=== PATIENT | female | born 1990 | race Caucasian/White ===

== ENCOUNTER → 2016-12-28 | Outpatient (CLI) | payer OTHER ==
[~2016-12-28] MED LIST: CIPROFLAXIN PO; NO HISTORICAL MEDS; toradol PO
--- NOTE | 2016-12-29 03:39 | REP ---
Clinical: Anatomical evaluation. Comparison: None . Findings: Examination demonstrates a single live intrauterine in breech presentation. motion is identified by technologist. Placenta is noted anteriorly and grade zero without evidence for placenta previa or abruption (placental tip is 2.8 cm from the closed internal os). Amniotic fluid volume is normal. Cervix measures 6.5 cm in length and appears closed. No evidence for nuchal cord. Gestational age by current measurements 20 weeks 5 days with SHAHRAM 05/12/2017 . FHR equals 139 beats per minute. BPD 4.9 cm 20 weeks 6 days HC 18.4 cm 20 weeks 5 days AC 15.4 cm 20 weeks 4 days FL 3.6 cm 21 weeks 3 days HL 3.6 cm 22 weeks 2 days HC/AC ratio 1.19 Estimated weight 389 grams ( 54th percentile). Anatomical assessment demonstrates normal structures including cranium, choroid plexus, cavum, cerebellum/posterior fossa, facial features, lungs, four-chamber heart/ventricular outflow tracts, diaphragm, stomach, cord insertion/three-vessel cord, bladder, spine, and extremities. Mild bilateral hydronephrosis with the renal pelvises measuring approximately 4 mm diameter. Impression: Single live intrauterine in breech presentation. Mild bilateral renal hydronephrosis may warrant followup. Remainder of the anatomical assessment is complete and normal. Signed by Dawit Roque MD 12/29/2016 03:30 A
== END | disposition home or self-care (01) ==
LOC: M SMT 10:51
PROVIDERS: ATTEND Specialist
DX: Z36 Encounter for antenatal screening of mother (principal); Z3A.20 20 weeks gestation of pregnancy; O32.1XX0 Maternal care for breech presentation, not applicable or unspecified; O36.8920 Maternal care for other specified fetal problems, second trimester, not applicable or unspecified

== ENCOUNTER → 2017-02-16 | Outpatient (CLI) | payer OTHER ==
[2017-02-16 13:21] LABS: BASO # 0.1 K/mm3 (0.0-0.2); BASO % 0.5 % (0.0-1.0); EOS # 0.3 K/mm3 (0.0-0.50); EOS % 2.3 % (0.0-3.0); LARGE UNSTAINED CELL # 0.1 K/mm3 (0.0-0.4); LYMPH # 2.2 K/mm3 (1.5-6.5); LYMPH % 15.8 % (24.0-44.0); MEAN CORPUSCULAR HEMOGLOBIN 31.2 pg (27.0-33.0); MEAN CORPUSCULAR VOLUME 94.7 fl (80.0-96.0); MONO # 0.5 K/mm3 (0.0-0.8); MONO % 3.8 % (0.0-5.0); NEUTROPHILS # 9.8 K/mm3 (1.8-7.7); NEUTROPHILS % 76.5 % (36.0-66.0); PLATELET COUNT, AUTOMATED 359 k/mm3 (150-450); RED CELL DISTRIBUTION WIDTH 13.2 % (11.5-14.5); WHITE BLOOD COUNT 12.8 K/mm3 (4.0-10.0)
== END ==
LOC: M SMT 09:17
PROVIDERS: ATTEND Advanced Practice Midwife
DX: Z34.83 Encounter for supervision of other normal pregnancy, third trimester (principal); Z36 Encounter for antenatal screening of mother; Z3A.00 Weeks of gestation of pregnancy not specified

== ENCOUNTER → 2017-03-16 | Outpatient (CLI) | payer OTHER ==
--- NOTE | 2017-03-16 15:16 | REP ---
Obstetric sonography: History: Supervision of , size/date discrepancy. Size greater than dates. Findings: Scanning through the gravid uterus demonstrates a viable single intrauterine gestation in a cephalic lie. heart rate is recorded at 136 beats per minute. A posterior placenta is seen without evidence of previa. Amniotic fluid is subjectively normal. SIMI is normal at 17.8 cm. S/D ratio in the umbilical cord artery by Doppler is normal 2.70. cranium, face and profile, diaphragm, left-sided stomach, three-vessel cord, kidneys and bladder are seen today are felt to be unremarkable. Biometry chart: BPD 8.7 cm = 35 weeks 1 day HC 30.3 cm = 33 weeks 5 days AC 28.9 cm = 32 weeks 6 days FL 6.6 cm = 33 weeks 5 days HC/AC ratio normal 1.05. Cephalic index normal 0.8. Estimated weight 2194 grams, 4 pounds 13 ounces, 76th percentile for 31 weeks 6 days. Impression: Viable single intrauterine gestation at 33 weeks 3 days by today's composite criteria for expected gestational age estimate based on prior sonography is 31 weeks 6 days. SHAHRAM by prior sonography May 12, 2017. Estimated weight in the 76th percentile. Signed by Remy Medina MD 03/16/2017 05:01 P
== END ==
LOC: M SMT 12:55
PROVIDERS: ATTEND Advanced Practice Midwife
DX: Z36 Encounter for antenatal screening of mother (principal); Z3A.33 33 weeks gestation of pregnancy

== ENCOUNTER → 2017-04-25 | Outpatient (CLI) | payer OTHER ==
[2017-04-25 13:42] LABS: ALT/SGPT 19 U/L (12-78); AST/SGOT 11 U/L (15-37); BILIRUBIN,TOTAL 0.3 MG/DL (0.2-1.0); GLOMERULAR FILTRATION RATE > 60.0 (>60); URIC ACID 4.3 MG/DL (2.6-6.0)
[2017-04-25 13:46] LABS: MEAN CORPUSCULAR HEMOGLOBIN 32.1 pg (27.0-33.0); MEAN CORPUSCULAR HGB CONC 33.8 g/dl (32.0-36.5); MEAN CORPUSCULAR VOLUME 95.1 fl (80.0-96.0); WHITE BLOOD COUNT 13.4 K/mm3 (4.0-10.0)
== END ==
LOC: M SMT 08:51
PROVIDERS: ATTEND Specialist
DX: O14.03 Mild to moderate pre-eclampsia, third trimester (principal)

== ENCOUNTER 2017-05-03 11:08 | Inpatient (IN) | payer OTHER ==
[~2017-05-03] VITALS: Ht 172.7 cm; Wt 134.0 kg
[2017-05-03] VITALS (7 sets, daily range): BP systolic 95–144; BP diastolic 50–67
[2017-05-03] MEDS ORDERED: LR 1,000 ML IV SCH ×2 (12:00→17:28)
[2017-05-03] MEDS ORDERED: LACTATED RINGER'S 1000 ML IV ONE (12:00)
[2017-05-03] MEDS ORDERED: FENTANYL 2MCG/ML ROPIVACAINE 0.2% IN 0.9% NACL 200ML IVBAG As Ordered ONE (12:23)
[2017-05-03 12:32] LABS: MEAN CORPUSCULAR HEMOGLOBIN 31.7 pg (27.0-33.0); MEAN CORPUSCULAR VOLUME 93.2 fl (80.0-96.0); RED CELL DISTRIBUTION WIDTH 14.2 % (11.5-14.5); WHITE BLOOD COUNT 12.8 K/mm3 (4.0-10.0)
[2017-05-03] MEDS ORDERED: FENTANYL/ROPIVACAINE/NACL BAG 200 ML EPIDURAL SCH (13:30)
[2017-05-03] MEDS ORDERED: ONDANSETRON 4MG/2ML VIAL (J2405) IV PRN ×2 (13:30→17:30)
[2017-05-03] MEDS ORDERED: ePHEDrine SULFATE 25 MG/5 ML(5MG/ML) SYRINGE IV PRN (13:30)
[2017-05-03] MEDS ORDERED: EPIDURAL COMMENT XX SCH (13:30)
[2017-05-03] MEDS ORDERED: diphenhydrAMINE INJ 50MG/ML VIAL (J1200) IV PRN (13:30)
[2017-05-03] MEDS ORDERED: NALOXONE INJ 0.4 MG/1 ML VIAL (J2310) IV PRN (13:30)
[2017-05-03] MEDS ORDERED: EPIDURAL/PCA KEYS XX PRN (13:30)
[2017-05-03] MEDS ORDERED: REFRIGERATOR IV KEYS XX PRN (13:30)
[2017-05-03] MEDS ORDERED: TERBUTALINE SULFATE 1 MG/ML VIAL (J3105) As Ordered ONE (17:01)
[2017-05-03] MEDS ORDERED: OXYTOCIN 30 UNITS IN 0.9% NaCl 500ML IV BAG (J2590) As Ordered ONE (17:12)
[2017-05-03] MEDS ORDERED: OXYTOCIN DRIP 30 UNITS in APPROPRIATE DILUENT 1 EA IV SCH (17:28)
[2017-05-03] MEDS ORDERED: PROMETHAZINE 25 MG TAB PO PRN (17:30)
[2017-05-03] MEDS ORDERED: MEASLES,MUMPS,RUBELLA VACCINE INJ (MMR-II) (90707) SC SCH (17:30)
[2017-05-03] MEDS ORDERED: IBUPROFEN 800 MG TAB PO PRN (17:30)
[2017-05-03] MEDS ORDERED: RHOGAM 300 MCG (1500 IU) INJ (J2790) IM SCH (17:30)
[2017-05-03] MEDS ORDERED: DIBUCAINE 1% OINTMENT 30GM TOP PRN (17:30)
[2017-05-03] MEDS ORDERED: DOCUSATE SODIUM 100 MG CAP PO PRN (17:30)
[2017-05-03] MEDS ORDERED: ACETAMINOPHEN 500 MG TAB PO PRN (17:30)
[2017-05-04 05:42] VITALS: BP 137/66
[2017-05-04] MEDS: PRENATAL VITAMIN TAB PO SCH (07:42)
[2017-05-04 18:04] VITALS: BP 137/73
[2017-05-05 06:11] VITALS: BP 127/66
[2017-05-05] MEDS ORDERED: IBUP-1114 PO (07:44)
[2017-05-05] MEDS ORDERED: ACET50TA PO (07:44)
[2017-05-05] MEDS ORDERED: PRENTAB9 PO (07:44)
[2017-05-05] MEDS: PRENATAL VITAMIN TAB PO SCH (08:01)
== END 2017-05-05 10:45 | disposition home or self-care (01) | DRG 560 ==
LOC: M LDO 11:08 → M LDI 11:13 → M OBS 18:36
PROVIDERS: ADMIT Obstetrics & Gynecology; ATTEND Obstetrics & Gynecology
PROC: 10E0XZZ Delivery of Products of Conception, External Approach (ICD-10-PCS; principal; 2017-05-03)
DX: O69.2XX0 Labor and delivery complicated by other cord entanglement, with compression, not applicable or unspecified (principal); Z37.0 Single live birth; Z3A.38 38 weeks gestation of pregnancy

== ENCOUNTER → 2017-06-22 | Day surgery (SDC) | payer OTHER ==
[~2017-06-22] VITALS: Ht 172.7 cm; Wt 124.3 kg
[~2017-06-22] MED LIST changes: +ACET50TA PO; +BUPIVACAINE HCL 0.25% 30 ML VIAL As Ordered ONE; +GLYCOPYRROLATE INJ 0.2 MG/ML 2 ML VIAL As Ordered ONE; +HYDROmorphone HCL 2 MG/ML 1ML VIAL (J1170) As Ordered ONE; +IBUP-1022 PO; +IBUP-1114 PO; +KETOROLAC 60 MG/2 ML VIAL (J1885) As Ordered ONE; +LIDOCAINE 1% MDV 20ML VIAL SQ PRN; +LIDOCAINE 2% INJ 100 MG/5 ML SDV (FOR ANES.) As Ordered ONE; +LR 1,000 ML IV ONE; +LR 1,000 ML IV SCH; +METOCLOPRAMIDE INJ 10MG/2ML VIAL (J2765) As Ordered ONE; +MIDAZOLAM INJ 2 MG/2 ML VIAL (J2250) As Ordered ONE; +NEOSTIGMINE 1MG/ML 5 ML SYRINGE (J2710) As Ordered ONE; +NO MEDICATIONS; +ONDANSETRON 4MG/2ML VIAL (J2405) As Ordered ONE; +ONDANSETRON 4MG/2ML VIAL (J2405) IV PRN; +OXYC1TAB23 PO; +PRENTAB9 PO; +PROPOFOL 200 MG/20 ML VIAL As Ordered ONE; +ROCURONIUM BROMIDE 50 MG/5 ML VIAL/SYRINGE As Ordered ONE; +SILVER NITRATE APPLICATOR As Ordered ONE; +dexameTHASONE 4 MG/ML 1ML VIAL (J1100) As Ordered ONE; +fentaNYL 100 MCG/2 ML INJECTION (J3010) IV PRN; +fentaNYL 250 MCG/5 ML INJECTION (J3010) As Ordered ONE
[2017-06-22 13:21] LABS: MEAN CORPUSCULAR HEMOGLOBIN 30.5 pg (27.0-33.0); MEAN CORPUSCULAR HGB CONC 32.8 g/dl (32.0-36.5); RED CELL DISTRIBUTION WIDTH 12.8 % (11.5-14.5); WHITE BLOOD COUNT 8.6 K/mm3 (4.0-10.0)
[2017-06-22 13:34] LABS: CONTROL LINE HCG INT CTR LINE PRESENT
[2017-06-22 20:10] VITALS: BP 133/73
--- NOTE | 2017-06-24 10:25 | RO ---
DATE OF PROCEDURE: 06/22/2017 PREOPERATIVE DIAGNOSIS: Satisfied parity. POSTOPERATIVE DIAGNOSIS: Satisfied parity. PROCEDURE PERFORMED: Laparoscopic bilateral salpingectomy. FINDINGS: Normal uterus and fallopian tubes bilaterally. Normal appearing ovaries bilaterally. SURGEON: Dr. Cresencio Dia PIPE SETTER: None. ANESTHESIA TYPE: General endotracheal. SPECIMENS TO PATHOLOGY: Bilateral fallopian tubes. ESTIMATED BLOOD LOSS: 20 mL. FLUID REPLACED: 1200 mL lactated Ringer's. DRAINS: Hanson catheter. URINE OUTPUT DURING THE PROCEDURE: 400 mL. COMPLICATIONS: None. PREOPERATIVE ANTIBIOTICS: None indicated. INDICATION: A 26-year-old 3, para 3 with 100% satisfied parity, desiring permanent tubal sterilization. She has been counseled on all available control method options to include long-acting reversible contraception. She has decided to proceed with laparoscopic bilateral salpingectomy. DESCRIPTION OF PROCEDURE: The patient was counseled and consented on the risks, benefits, indications and alternative to the procedure. Informed consent was obtained. She was taken to the operating room with an IV running, placed on the operating table in dorsal supine position where general anesthesia was administered and the airway was secured without any difficulty. She was then prepared and draped in a normal sterile fashion, and she was placed in low lithotomy position. A time-out was performed per protocol. Hanson catheter was placed under sterile conditions. A sterile speculum was placed into the vagina with good visualization of the cervix. The anterior lip of the cervix was grasped with a single-tooth tenaculum and downward traction was applied. Hulka uterine manipulator was then placed transcervically into the intrauterine cavity without any difficulty. The single-tooth tenaculum was removed and sterile speculum was removed, a glove switch was performed. 5 mL of 0.25% Marcaine were injected into the umbilicus. A 10 mm skin incision was made in the umbilicus. Through this incision, the Veress needle was placed into the intraperitoneal cavity. Intraperitoneal placement was confirmed with ease of flow of normal saline, negative return on aspiration and a positive drop test. The opening pressure was 7 mmHg. The abdomen was then insufflated with 2 liters of gas. The Veress needle was removed. Size 5 mm XCEL laparoscopic trocar was placed into the intraperitoneal cavity. Intraperitoneal placement was confirmed. No incidental injury or bleeding was noted. The patient was placed in steep Trendelenburg. Two additional laparoscopic port sites were placed on the left lower abdomen through 5 mm incisions. 5 mm XCEL laparoscopic trocars were placed under direct visualization. Attention was first turned to the right fallopian tube. The right fallopian tube was grasped at the fimbriated end and the underlying mesosalpinx/broad ligament was sequentially clamped, coagulated and transected until the level of the uterus was reached and then the right fallopian tube was amputated by clamp, coagulating and transecting. The fallopian tube was brought through the 5 mm cannula without any difficulty and sent to pathology for permanent section. In a similar fashion, the left fallopian tube was followed out to the fimbriated end, grasped at the fimbriated end and elevated. The underlying mesosalpinx/broad ligament was sequentially clamped, coagulated and transected with the LigaSure device until the level of the uterus was reached. The left fallopian tube was then clamped, coagulated and transected and thus amputated. The left fallopian tube was brought through the 5 mm cannula and sent to pathology for permanent section. Excellent hemostasis was noted. The gas was released from the abdomen. Excellent hemostasis was noted as the gas was being released. The cannulas were removed. The skin incisions were closed with #4-0 Monocryl in a subcuticular fashion and reinforced with Dermabond. The sponge, lap, needle and instrument counts were correct. Attention was then turned back to the vagina. A sterile speculum was placed with good visualization of the cervix. The Hulka uterine manipulator was removed. The tenaculum sites and the Hulka uterine manipulator site were cauterized with silver nitrate. Excellent hemostasis was noted. Sponge, lap, needle and instrument counts were all correct. The patient tolerated the entire procedure well. She was transferred to the post-anesthesia care unit (PACU) in good and stable condition.
== END | disposition home or self-care (01) ==
LOC: M SDC 12:49
PROVIDERS: ATTEND Obstetrics & Gynecology
DX: Z30.2 Encounter for sterilization (principal); F41.9 Anxiety disorder, unspecified; F32.9 Major depressive disorder, single episode, unspecified; M19.072 Primary osteoarthritis, left ankle and foot; Z88.8 Allergy status to other drugs, medicaments and biological substances; Z88.5 Allergy status to narcotic agent

== ENCOUNTER → 2018-03-08 | Outpatient (REF) | payer OTHER ==
[2018-03-08 11:13] LABS: BASO # 0.1 10^3/uL (0.0-0.2); BASO % 0.9 % (0.0-1.0); EOS # 0.4 10^3/uL (0.0-0.50); EOS % 5.7 % (0.0-3.0); HEMATOCRIT 36.8 % (36.0-47.0); HEMOGLOBIN 11.6 g/dl (12.0-15.5); IMMATURE GRANULOCYTE % 2.2 % (0-3.0); LYMPH # 2.2 10^3/uL (1.5-6.5); LYMPH % 29.6 % (24.0-44.0); MEAN CORPUSCULAR HEMOGLOBIN 26.9 pg (27.0-33.0); MEAN CORPUSCULAR HGB CONC 31.5 g/dl (32.0-36.5); MEAN CORPUSCULAR VOLUME 85.4 fl (80.0-96.0); MONO # 0.5 10^3/uL (0.0-0.8); MONO % 6.4 % (0.0-5.0); NEUTROPHILS # 4.1 10^3/uL (1.8-7.7); NEUTROPHILS % 55.2 % (36.0-66.0); PLATELET COUNT, AUTOMATED 366 10^3/uL (150-450); RED BLOOD COUNT 4.31 10^6/uL (4.00-5.40); RED CELL DISTRIBUTION WIDTH 14.6 % (11.5-14.5); WHITE BLOOD COUNT 7.4 10^3/uL (4.0-10.0)
[2018-03-08 11:34] LABS: TOTAL 25(OH) VITAMIN D 21.6 NG/ML (30.0-100.0)
[2018-03-08 11:37] LABS: ALBUMIN 3.1 GM/DL (3.2-5.2); ALBUMIN/GLOBULIN RATIO 0.78 (1.00-1.93); ALKALINE PHOSPHATASE 102 U/L (45-117); ALT/SGPT 18 U/L (12-78); ANION GAP 7 MEQ/L (8-16); AST/SGOT 9 U/L (7-37); BILIRUBIN,TOTAL 0.3 MG/DL (0.2-1.0); BLOOD UREA NITROGEN 15 MG/DL (7-18); CALCIUM LEVEL 8.5 MG/DL (8.5-10.1); CARBON DIOXIDE LEVEL 28 MEQ/L (21-32); CHLORIDE LEVEL 107 MEQ/L (98-107); CREATININE FOR GFR 0.65 MG/DL (0.55-1.30); GLOMERULAR FILTRATION RATE > 60.0 (>60); GLUCOSE, FASTING 87 MG/DL (70-100); POTASSIUM SERUM 4.4 MEQ/L (3.5-5.1); SODIUM LEVEL 142 MEQ/L (136-145); TOTAL PROTEIN 7.1 GM/DL (6.4-8.2)
== END ==
LOC: M LABDRAW1 10:40
DX: Z00.00 Encounter for general adult medical examination without abnormal findings (principal); R53.83 Other fatigue; Z68.42 Body mass index [BMI] 45.0-49.9, adult; E55.9 Vitamin D deficiency, unspecified
CPT/HCPCS: 84443

== ENCOUNTER → 2018-03-26 | Outpatient (REF) | payer OTHER ==
[2018-03-26 12:20] LABS: RETIC HEMOGLOBIN EQUIVALENT 31.5 pg (24-36); RETICULOCYTE # 69.4 10^9/L (17-77); RETICULOCYTE % 1.6 % (0.5-1.5)
[2018-03-26 12:36] LABS: FERRITIN 20 NG/ML (8-252); IRON (FE) 20 UG/DL (50-170); PERCENT SATURATION 6.4 % (13.2-45.0); TOTAL IRON BINDING CAPACITY 312 UG/DL (250-450)
== END ==
LOC: M SFHCPLAZ 10:28
DX: D64.9 Anemia, unspecified (principal)
CPT/HCPCS: 83550

== ENCOUNTER → 2018-05-13 | Outpatient (REF) | payer OTHER ==
[2018-05-13 11:51] LABS: HEMATOCRIT 36.2 % (36.0-47.0); HEMOGLOBIN 11.5 g/dl (12.0-15.5); MEAN CORPUSCULAR HEMOGLOBIN 27.8 pg (27.0-33.0); MEAN CORPUSCULAR HGB CONC 31.8 g/dl (32.0-36.5); MEAN CORPUSCULAR VOLUME 87.7 fl (80.0-96.0); PLATELET COUNT, AUTOMATED 335 10^3/uL (150-450); RED BLOOD COUNT 4.13 10^6/uL (4.00-5.40); RED CELL DISTRIBUTION WIDTH 16.1 % (11.5-14.5); RETICULOCYTE # 51.6 10^9/L (17-77); RETICULOCYTE % 1.3 % (0.5-1.5); WHITE BLOOD COUNT 7.6 10^3/uL (4.0-10.0)
[2018-05-13 12:00] LABS: IRON (FE) 31 UG/DL (50-170); PERCENT SATURATION 11.8 % (13.2-45.0); TOTAL IRON BINDING CAPACITY 262 UG/DL (250-450)
== END ==
LOC: M LABDRAW1 08:27
DX: D50.9 Iron deficiency anemia, unspecified (principal)

== ENCOUNTER → 2018-07-03 | Outpatient (CLI) | payer OTHER | LOC: M RAD 07:33 | DX: Z87.19 Personal history of other diseases of the digestive system (principal) | CPT/HCPCS: 76705 ==

== ENCOUNTER → 2019-01-10 | Outpatient (REF) | payer OTHER ==
[~2019-01-10] MED LIST changes: -ACET50TA PO; -BUPIVACAINE HCL 0.25% 30 ML VIAL As Ordered ONE; -GLYCOPYRROLATE INJ 0.2 MG/ML 2 ML VIAL As Ordered ONE; -HYDROmorphone HCL 2 MG/ML 1ML VIAL (J1170) As Ordered ONE; -KETOROLAC 60 MG/2 ML VIAL (J1885) As Ordered ONE; -LIDOCAINE 1% MDV 20ML VIAL SQ PRN; -LIDOCAINE 2% INJ 100 MG/5 ML SDV (FOR ANES.) As Ordered ONE; -LR 1,000 ML IV ONE; -LR 1,000 ML IV SCH; +MAPA500T2 PO; -METOCLOPRAMIDE INJ 10MG/2ML VIAL (J2765) As Ordered ONE; -MIDAZOLAM INJ 2 MG/2 ML VIAL (J2250) As Ordered ONE; -NEOSTIGMINE 1MG/ML 5 ML SYRINGE (J2710) As Ordered ONE; -ONDANSETRON 4MG/2ML VIAL (J2405) As Ordered ONE; -ONDANSETRON 4MG/2ML VIAL (J2405) IV PRN; -PROPOFOL 200 MG/20 ML VIAL As Ordered ONE; -ROCURONIUM BROMIDE 50 MG/5 ML VIAL/SYRINGE As Ordered ONE; -SILVER NITRATE APPLICATOR As Ordered ONE; -dexameTHASONE 4 MG/ML 1ML VIAL (J1100) As Ordered ONE; -fentaNYL 100 MCG/2 ML INJECTION (J3010) IV PRN; -fentaNYL 250 MCG/5 ML INJECTION (J3010) As Ordered ONE
[2019-01-10 12:20] LABS: HEMATOCRIT 36.9 % (36.0-47.0); HEMOGLOBIN 11.7 g/dl (12.0-15.5); MEAN CORPUSCULAR HEMOGLOBIN 27.5 pg (27.0-33.0); MEAN CORPUSCULAR HGB CONC 31.7 g/dl (32.0-36.5); MEAN CORPUSCULAR VOLUME 86.8 fl (80.0-96.0); PLATELET COUNT, AUTOMATED 400 10^3/uL (150-450); RED BLOOD COUNT 4.25 10^6/uL (4.00-5.40); WHITE BLOOD COUNT 7.7 10^3/uL (4.0-10.0)
[2019-01-10 13:24] LABS: ALBUMIN 3.3 GM/DL (3.2-5.2); ALT/SGPT 16 U/L (12-78); BILIRUBIN,TOTAL 0.5 MG/DL (0.2-1.0); BLOOD UREA NITROGEN 15 MG/DL (7-18); CALCIUM LEVEL 8.2 MG/DL (8.5-10.1); CARBON DIOXIDE LEVEL 27 MEQ/L (21-32); CHLORIDE LEVEL 105 MEQ/L (98-107); CHOLESTEROL LEVEL 178 MG/DL (<200); CHOLESTEROL RISK RATIO 3.708 (<5); CREATININE FOR GFR 0.72 MG/DL (0.55-1.30); FERRITIN 45 NG/ML (8-252); GLOMERULAR FILTRATION RATE > 60.0 (>60); GLUCOSE, FASTING 78 MG/DL (70-100); HDL CHOLESTEROL 48 MG/DL (>40); IRON (FE) 40 UG/DL (50-170); LDL CHOLESTEROL 121 MG/DL (<100); NON-HDL-C 130 MG/DL; POTASSIUM SERUM 4.3 MEQ/L (3.5-5.1); SODIUM LEVEL 142 MEQ/L (136-145); TOTAL IRON BINDING CAPACITY 266 UG/DL (250-450); TOTAL PROTEIN 7.5 GM/DL (6.4-8.2); TRIGLYCERIDES LEVEL 46 MG/DL (<150)
[2019-01-10 13:31] LABS: TOTAL 25(OH) VITAMIN D 19.7 NG/ML (30.0-100.0)
== END ==
LOC: M SFHCPLAZ 09:46
PROVIDERS: ATTEND Physician Assistant
DX: D50.9 Iron deficiency anemia, unspecified (principal); Z13.220 Encounter for screening for lipoid disorders; F32.9 Major depressive disorder, single episode, unspecified; E55.9 Vitamin D deficiency, unspecified

== ENCOUNTER 2019-04-29 16:46 | Emergency (ER) | payer OTHER ==
[~2019-04-29] VITALS: Ht 172.7 cm; Wt 141.6 kg
[2019-04-29] MEDS ORDERED: IRON1TAB2 PO (16:59)
[2019-04-29] MEDS ORDERED: VITAD1000T PO (16:59)
[2019-04-29] MEDS ORDERED: LATA0.0015 (16:59)
[2019-04-29] MEDS ORDERED: BRIM2OPD (16:59)
[2019-04-29] MEDS ORDERED: [UNRECOGNIZED DRUG - OTHER] (16:59)
[2019-04-29] MEDS ORDERED: NS 1,000 ML IV ONE (17:45)
[2019-04-29] MEDS ORDERED: PANTOPRAZOLE 40MG INJ (PROTONIX) (C9113) IV ONE (17:45)
[2019-04-29] MEDS ORDERED: KETOROLAC 30 MG/ML VIAL (J1885) IV ONE (17:45)
[2019-04-29] MEDS ORDERED: ONDANSETRON 4MG/2ML VIAL (J2405) IV ONE (17:45)
[2019-04-29 18:19] LABS: HEMATOCRIT 40.6 % (36.0-47.0); HEMOGLOBIN 13.2 g/dl (12.0-15.5); MEAN CORPUSCULAR HEMOGLOBIN 28.2 pg (27.0-33.0); MEAN CORPUSCULAR HGB CONC 32.5 g/dl (32.0-36.5); MEAN CORPUSCULAR VOLUME 86.8 fl (80.0-96.0); PLATELET COUNT, AUTOMATED 345 10^3/uL (150-450); RED BLOOD COUNT 4.68 10^6/uL (4.00-5.40); WHITE BLOOD COUNT 6.4 10^3/uL (4.0-10.0)
[2019-04-29 18:36] LABS: ALBUMIN 3.4 GM/DL (3.2-5.2); ALT/SGPT 27 U/L (12-78); BILIRUBIN,DIRECT < 0.1 MG/DL (0.0-0.2); BILIRUBIN,TOTAL 0.2 MG/DL (0.2-1.0); BLOOD UREA NITROGEN 12 MG/DL (7-18); CALCIUM LEVEL 8.9 MG/DL (8.5-10.1); CARBON DIOXIDE LEVEL 27 MEQ/L (21-32); CHLORIDE LEVEL 104 MEQ/L (98-107); CREATININE FOR GFR 0.77 MG/DL (0.55-1.30); GLOMERULAR FILTRATION RATE > 60.0 (>60); GLUCOSE, FASTING 79 MG/DL (70-100); LIPASE 61 U/L (73-393); POTASSIUM SERUM 3.9 MEQ/L (3.5-5.1); SODIUM LEVEL 139 MEQ/L (136-145); TOTAL PROTEIN 7.6 GM/DL (6.4-8.2)
[2019-04-29 18:42] LABS: HCG, SERUM QUALITATIVE NEGATIVE (NEGATIVE)
--- NOTE | 2019-04-29 19:25 | REP ---
Abdomen flat upright PA chest four views History: Abdominal pain A small amount of air is present in the intestine. There are several air-fluid levels. There are no dilated loops of intestine. There is no pneumoperitoneum. Surgical clips are present in the right upper quadrant. The lungs are clear. Impression: Nonspecific bowel gas pattern. Electronically Signed by Davon Mcallister MD 04/29/2019 07:17 P
[2019-04-29] MEDS ORDERED: ZOFR4TAB16 PO (19:30)
[2019-04-29] MEDS ORDERED: FAMO20TA PO (19:30)
[2019-04-29 19:58] VITALS: BP 122/60
== END 2019-04-29 20:01 | disposition home or self-care (01) ==
LOC: M ED 16:46
DX: K52.9 Noninfective gastroenteritis and colitis, unspecified (principal); Z88.8 Allergy status to other drugs, medicaments and biological substances
CPT/HCPCS: 74021; 80048; 80076; 81001; 83690; 84703; 85027; 96360; 96361; 96374; 96375; 99284; C9113; J2405

== ENCOUNTER 2019-09-11 16:37 | Emergency (ER) | payer OTHER ==
[~2019-09-11] VITALS: Ht 172.7 cm; Wt 143.9 kg
[~2019-09-11 16:37] MED LIST changes: +BRIM2OPD; +CHOL100029 PO; +FAMO20TA PO; +IRON1TAB2 PO; +LATA0.0015; +ZOFR4TAB16 PO; +[UNRECOGNIZED DRUG - OTHER]
[2019-09-11 17:06] LABS: BASO % 0.5 % (0.0-1.0); EOS # 0.2 10^3/uL (0.0-0.5); EOS % 2.4 % (0.0-3.0); HEMATOCRIT 37.2 % (36.0-47.0); LYMPH # 2.5 10^3/uL (1.5-5.0); MEAN CORPUSCULAR HGB CONC 32.3 g/dl (32.0-36.5); MEAN CORPUSCULAR VOLUME 86.9 fl (80.0-96.0); MONO # 0.5 10^3/uL (0.0-0.8); MONO % 5.9 % (0.0-5.0); NEUTROPHILS # 4.9 10^3/uL (1.5-8.5); NEUTROPHILS % 59.7 % (36.0-66.0); PLATELET COUNT, AUTOMATED 379 10^3/uL (150-450); RED BLOOD COUNT 4.28 10^6/uL (4.00-5.40); WHITE BLOOD COUNT 8.2 10^3/uL (4.0-10.0)
[2019-09-11] MEDS ORDERED: NS 1,000 ML IV ONE (17:30)
[2019-09-11] MEDS ORDERED: KETOROLAC 30 MG/ML VIAL (J1885) IV ONE (17:30)
[2019-09-11 17:40] LABS: ALBUMIN 3.4 GM/DL (3.2-5.2); ALT/SGPT 19 U/L (12-78); BILIRUBIN,DIRECT 0.2 MG/DL (0.0-0.2); BILIRUBIN,TOTAL 0.5 MG/DL (0.2-1.0); BLOOD UREA NITROGEN 10 MG/DL (7-18); CALCIUM LEVEL 8.8 MG/DL (8.5-10.1); CARBON DIOXIDE LEVEL 28 MEQ/L (21-32); CHLORIDE LEVEL 106 MEQ/L (98-107); CREATININE FOR GFR 0.74 MG/DL (0.55-1.30); GLOMERULAR FILTRATION RATE > 60.0 (>60); GLUCOSE, FASTING 77 MG/DL (70-100); LIPASE 108 U/L (73-393); POTASSIUM SERUM 4.1 MEQ/L (3.5-5.1); SODIUM LEVEL 139 MEQ/L (136-145); TOTAL PROTEIN 7.4 GM/DL (6.4-8.2)
[2019-09-11 17:42] LABS: HCG, SERUM QUALITATIVE NEGATIVE (NEGATIVE)
[2019-09-11] MEDS ORDERED: ISOVUE-370 76% 100ML VIAL (Q9967) As Ordered ONE (18:18)
--- NOTE | 2019-09-11 19:31 | REPVR ---
PROCEDURE INFORMATION: Exam: CT Abdomen And Pelvis With Contrast Exam date and time: 09/11/2019 6:12 PM Clinical history: 29 years old, female; Abdominal pain; Additional info: Central abd pain, llq pain TECHNIQUE: Imaging protocol: Computed tomography of the abdomen and pelvis with intravenous contrast. Radiation optimization: All CT scans at this facility use at least one of these dose optimization techniques: automated exposure control; mA and/or kV adjustment per patient size (includes targeted exams where dose is matched to clinical indication); or iterative reconstruction. Contrast material: ISOVUE 370; Contrast volume: 100 ml; Contrast route: IV; COMPARISON: CT ABD PELVIS W/O FOL BY WIT 03/24/2015 6:03 PM FINDINGS: Lungs: 2 tiny nodules within the right middle lobe and one in the left lower lobe are unchanged compared to the prior study performed in 2014. No additional followup imaging is recommended. The lung bases are otherwise clear. Liver: Unremarkable. No mass. Gallbladder and bile ducts: Status post cholecystectomy. Pancreas: Unremarkable. No ductal dilation. Spleen: Unremarkable. No splenomegaly. Adrenals: Normal. No mass. Kidneys and ureters: Unremarkable. No stones. No hydronephrosis. Stomach and bowel: Minimal colonic diverticulosis without diverticulitis. The stomach and small bowel are unremarkable. Appendix: Status post appendectomy. Intraperitoneal space: Unremarkable. No free air. No significant fluid collection. Vasculature: Unremarkable. No abdominal aortic aneurysm. Lymph nodes: Numerous nonspecific slightly prominent mesenteric lymph nodes, unchanged. Bladder: Unremarkable as visualized. Reproductive: Unremarkable as visualized. Bones/joints: No acute fracture. Soft tissues: Tiny umbilical hernia containing fat. IMPRESSION: No acute abnormality. Electronically signed by: Domingo Perez On 09/11/2019 19:30:48 PM
[2019-09-11 20:50] VITALS: BP 129/72
== END 2019-09-11 20:52 | disposition home or self-care (01) ==
LOC: M ED 16:37
DX: K42.9 Umbilical hernia without obstruction or gangrene (principal); R10.9 Unspecified abdominal pain; G43.909 Migraine, unspecified, not intractable, without status migrainosus; Z79.899 Other long term (current) drug therapy; Z88.5 Allergy status to narcotic agent; Z88.8 Allergy status to other drugs, medicaments and biological substances
CPT/HCPCS: 74177; 80048; 80076; 81001; 83690; 84703; 85025; 87086; 96361; 96374; 99284; J1885; Q9967

== ENCOUNTER → 2019-11-04 | Outpatient (REF) | payer OTHER ==
[~2019-11-04] MED LIST changes: -BRIM2OPD; +BRIM2OPD OU; -LATA0.0015; +LATA0.0015 OU
== END ==
LOC: M WHC 14:04
PROVIDERS: ATTEND Obstetrics & Gynecology
DX: Z01.419 Encounter for gynecological examination (general) (routine) without abnormal findings (principal)

== ENCOUNTER 2019-11-14 07:10 | Day surgery (SDC) | payer OTHER ==
[~2019-11-14] VITALS: Ht 172.7 cm; Wt 139.7 kg
[~2019-11-14 07:10] MED LIST changes: +LR 1,000 ML IV ONE; +ceFAZolin SOD 2 GM in IV 1 EA IV ONE
[2019-11-14] MEDS ORDERED: ROCURONIUM BROMIDE 50 MG/5 ML VIAL As Ordered ONE ×2 (08:01→09:08)
[2019-11-14] MEDS ORDERED: LIDOCAINE 2% INJ 100 MG/5 ML SDV (FOR ANES.) As Ordered ONE (08:01)
[2019-11-14] MEDS ORDERED: propofoL 200 MG/20 ML VIAL As Ordered ONE (08:01)
[2019-11-14] MEDS ORDERED: MIDAZOLAM INJ 2 MG/2 ML VIAL (J2250) As Ordered ONE (08:02)
[2019-11-14] MEDS ORDERED: fentaNYL 250 MCG/5 ML INJECTION (J3010) As Ordered ONE (08:02)
[2019-11-14] MEDS ORDERED: LIDOCAINE 1% SDV INJ 30 ML VIAL As Ordered ONE (08:09)
[2019-11-14] MEDS ORDERED: BUPIVACAINE HCL 0.25% 30 ML VIAL As Ordered ONE (08:09)
[2019-11-14] MEDS ORDERED: BUPIVACAINE HCL 0.25% 10 ML VIAL As Ordered ONE (08:57)
[2019-11-14] MEDS ORDERED: dexameTHASONE 4 MG/ML 1ML VIAL (J1100) As Ordered ONE (09:08)
[2019-11-14] MEDS ORDERED: METOCLOPRAMIDE INJ 10MG/2ML VIAL (J2765) As Ordered ONE (09:08)
[2019-11-14] MEDS ORDERED: ACETAMINOPHEN 1000MG 100ML IV BTL (OFIRMEV) (J0131 PER 10MG) As Ordered ONE (09:08)
[2019-11-14] MEDS ORDERED: KETOROLAC 60 MG/2 ML VIAL (J1885) As Ordered ONE (09:08)
[2019-11-14] MEDS ORDERED: SUGAMMADEX SODIUM 500 MG/5 ML VIAL (BRIDION) As Ordered ONE (09:09)
[2019-11-14] MEDS ORDERED: BUPIVACAINE LIPOSOME/PF 1.3% 20ML VIAL (13.3MG/ML)(EXPAREL)(C9290 PER1MG) As Ordered ONE (09:11)
[2019-11-14] MEDS ORDERED: fentaNYL 100 MCG/2 ML INJECTION (J3010) As Ordered ONE (10:58)
[2019-11-14] MEDS: fentaNYL 100 MCG/2 ML INJECTION (J3010) IV PRN ×4 (11:00→11:20)
[2019-11-14] MEDS ORDERED: OXYC1TAB23 PO (11:03)
[2019-11-14] MEDS ORDERED: oxyCODONE 5MG TAB PO PRN (11:30)
[2019-11-14] MEDS ORDERED: ONDANSETRON 4MG/2ML VIAL (J2405) IV PRN ×2 (11:30)
[2019-11-14] MEDS ORDERED: KETOROLAC 30 MG/ML VIAL (J1885) IV PRN (11:30)
[2019-11-14] MEDS ORDERED: PERCOCET 5MG/325MG TAB PO PRN ×2 (11:30)
[2019-11-14] MEDS ORDERED: LR 1,000 ML IV SCH (11:30)
[2019-11-14 13:41] VITALS: BP 128/64
--- NOTE | 2019-12-16 11:03 | ROOPDOC ---
[facility] Report Of Operation Report of Operation DATE OF PROCEDURE: 11/14/19 PREPROCEDURE DIAGNOSES: Umbilical hernia. POSTPROCEDURE DIAGNOSES: Umbilical hernia most likely incisional from previous umbilical port sites. PROCEDURE: Laparoscopic him medical hernia repair with placement of a 12 cm Parietex composite mesh as IPOM. SURGEON: Ben David MD UNIVERSITY CONTROLLER: ANESTHESIA: Gen. anesthesia. ESTIMATED BLOOD LOSS: Approximately 10 mL. COMPLICATIONS: None. Specimen: Umbilical hernia content, scar PROCEDURE NOTE: Patient is a 29-year-old female, morbidly obese seen in the emergency room for pain around her umbilicus was found to have underlying fat- containing umbilical hernia. She had previous port sites both on top and below her umbilicus from previous laparoscopic cholecystectomy and laparoscopic appendectomy. DESCRIPTION OF PROCEDURE: Patient was brought to the operating room for laparoscopic umbilical hernia repair. She received 2 g of Ancef IV preoperatively for wound prophylaxis. She was placed supine on the operating room table, compression boots placed in both lower extremities for DVT prophylaxis. General endotracheal anesthesia then started without any complication. Her abdomen was widely prepped and draped in usual sterile fashion. Her left arm is tucked. We paused for a surgical timeout using both pre-incision safety checklist to verify correct patient, procedure site and additional clinical information prior to beginning the procedure Entry into into the abdomen done through a small incision over the left upper quadrant area subcostal, slightly lateral to accommodate the mesh placement. Veress needle was inserted on a controlled fashion. Intra-abdominal placement confirmed with saline drop technique. CO2 insufflation started to pressure 15 mmHg. Using the same incision a 5 mm Visiport was placed under direct vision of laparoscope. The area underneath the insertion site was inspected for injury and none was found. The table was turned right side down to create space for the left side for the working ports. A second working port was placed over the left lower quadrant area above the anterior superior iliac spine level. Operative findings: 1 diagnostic laparoscopy a small tongue of omentum was noted to come through the bottom of her umbilicus. I could feel some nodularity at the bottom of the umbilical skin cleft area and The omentum was reduced back into the abdomen and lysed away from the hernia opening which is fairly small about just 1.5 cm or so. I could still feel some nodularity at the bottom of her umbilical cleft so I opened up the peritoneum around the opening. There is a good amount of scarring around the area is most likely this is related to the previous port site incisions. I opened up slightly the fascia the top portion of the umbilicus to fully reduce the preperitoneal fat as well as hard and scarlike tissues which poses is a lump underneath the cleft. I also placed a third port between my 2 ports to allow me to manipulate the area of the hernia with 2 instruments. I continued taking this tissues with a Harmonic Scalpel until I could no longer feel a lump. After doing so the area was examined for hemostasis. I chose a 12 cm Escobedo 6 composite mesh. Labeled the rough side to side will adhered to the abdominal wall, placed 4 transabdominal sutures at the 3,6,9 and 12 o'clock position, rolled this tightly and placed this inside the abdomen temporarily removing the left lower quadrant 5 mm port and replacing it back after the mesh and sutures were fully inside the abdomen. The mesh was then unrolled and positioned directly centered underneath the fascial defect and orie nted so as the rough side is facing the abdominal wall. Previously marked areas at the 3, 9 12 and 6 o'clock position in the abdominal wall was punctured with a 15 blade scalpel and the suture passer was then used to retrieve the transabdominal sutures to position the mesh centered at the fascial defect. Once the mesh was adequately positioned and centered, the abdominal pressure was decreased to 8 mmHg.Two rows of secure strap tacking zoila were then placed circumferentially to affix the mesh to the abdominal wall with the outside rim of tacks placed 2 cm apart and inside rim about 3-4 cm beyond the fascial defect. The transabdominal sutures were tied snug but not tight. We inspected the mesh for proper placement and this appears to be aligned well to the abdominal wall, no active bleeding noted associated with the tacks. We surveyed the abdomen for any injury. The preperitoneal fat tissue that we reduced back in the abdomen were retrieved. The abdomen was insufflated. All ports were removed. The skin incisions at the port site were closed with 4-0 Monocryl in subsequent fashion. Dermabond dressing was placed at the port sites and the transabdominal sutures sites. Patient simply awakened, extubated and brought to recovery room stable. All counts of sponges and instruments were verified correct. BEN DAVID MD Dec 16, 2019 11:03
== END 2019-11-14 13:56 | disposition home or self-care (01) ==
LOC: M SDC 07:10
PROVIDERS: ATTEND Surgery
DX: K42.9 Umbilical hernia without obstruction or gangrene (principal); F41.9 Anxiety disorder, unspecified; F32.9 Major depressive disorder, single episode, unspecified; K21.9 Gastro-esophageal reflux disease without esophagitis; M19.072 Primary osteoarthritis, left ankle and foot; Z79.899 Other long term (current) drug therapy; Z88.8 Allergy status to other drugs, medicaments and biological substances; Z88.5 Allergy status to narcotic agent
CPT/HCPCS: 49652; 88302; C1781; C9290; J0131; J0690; J1100; J1885; J2250; J2765; J3010

== ENCOUNTER → 2020-12-21 | Outpatient (REF) | payer OTHER ==
[~2020-12-21] MED LIST changes: +KETO0.02; -LR 1,000 ML IV ONE; -ceFAZolin SOD 2 GM in IV 1 EA IV ONE
== END ==
LOC: M SFHCWAGY 13:42
PROVIDERS: ATTEND Obstetrics & Gynecology
DX: N93.9 Abnormal uterine and vaginal bleeding, unspecified (principal)

== ENCOUNTER → 2021-01-02 | Outpatient (CLI) | payer OTHER | LOC: M LABSMTC 07:58 | PROVIDERS: ATTEND Anesthesiology | DX: Z01.812 Encounter for preprocedural laboratory examination (principal); Z20.822 Contact with and (suspected) exposure to COVID-19 ==

== ENCOUNTER 2021-01-07 11:29 | Day surgery (SDC) | payer OTHER ==
[~2021-01-07] VITALS: Ht 172.7 cm; Wt 143.3 kg
[~2021-01-07 11:29] MED LIST changes: +ACETAMINOPHEN 1000MG 100ML IV BTL (OFIRMEV) (J0131 PER 10MG) As Ordered ONE; +HYDROmorphone HCL 2 MG/ML 1ML VIAL (J1170) As Ordered ONE; -KETO0.02; +KETO0.02 OU; +KETOROLAC 60MG 2ML VIAL As Ordered ONE; +LIDOCAINE 1% MDV 20ML VIAL SQ PRN; +LIDOCAINE 2% 100MG/5ML SDV (FOR ANES.) As Ordered ONE; +LR 1,000 ML IV ONE; +MIDAZOLAM INJ 2MG/2ML VIAL (J2250 PER 1MG) As Ordered ONE; +ONDANSETRON 4MG/2ML VIAL As Ordered ONE; +ROCURONIUM BROMIDE 50 MG/5 ML VIAL As Ordered ONE; +SUGAMMADEX SODIUM 500 MG/5 ML VIAL (BRIDION) As Ordered ONE; +ceFAZolin SOD 2 GM in IV 1 EA IV ONE; +dexameTHASONE 4 MG/ML 1ML VIAL (J1100 PER 1MG) As Ordered ONE; +fentaNYL 100 MCG/2 ML INJECTION (J3010) As Ordered ONE; +propofoL 200 MG/20 ML VIAL As Ordered ONE
--- OUTSIDE RECORDS SUMMARY | 2021-01-07 11:33 | CCD ---
Author Author [facility] Organization [facility] Address Unknown Phone Unavailable Care Team Providers [facility] [employer] Name Role Phone Cresencio Dia Unavailable PROBLEMS Type Condition ICD9-CM Code [id number] Code Onset Dates Condition S tatus SNOMED Code Notes Problem Obesity (BMI 30-39.9) 278.00 Active 619114922 Problem Depression 311 Active 165719384 Problem Vitamin d deficiency 268.9 Active 51500479 Problem Iron deficiency anemia, unspecified iron deficiency an emia type D50.9 Active 97334333 Problem Abnormal uterine bleeding (AUB) N93.9 Active 89926175827868 Problem Body mass index (BMI) of 45.0-49.9 in adult Z68.42 Active 894884685 Problem Vitamin D deficiency E55.9 Active 48538993 Problem Morbid (severe) obesity due to excess calories E66 .01 Active 92411570925001 Problem Depression, unspecified depression type F32.9 Active 17209581 ALLERGIES Allergen (clinical drug ingredient) Drug/Non Drug Allergy do cumented on EMR Reaction Allergy Type Onset Date Status Oral control Hives Non Drug Allergy Active Codeine Phosphate (For Allergies Use Only) migraines Drug Allergy Active ENCOUNTERS from 1988 to 2020-12-09 Encounter Location Date Provider Diagnosis [facility] [address] [place] [address] Nov, Cresencio Dia IMMUNIZATIONS Vaccine Route Administration Date Status TDAP 0.5mL (Boostrix) IM Intramuscular March 26, 2018 Administe red Influenza (6mo & up) Fluzone IM Intramuscular Oct 14, 2018 Ad ministered Influenza (6mo & up) Fluzone IM Intramuscular Sep 21, 2014 Ad ministered SOCIAL HISTORY Tobacco Use: Social History Observation Description Date Details (start date - stop date) Never Smoker Sex Assigned At : Social History Observation Description Sex Assigned At Unknown Language: Question Answer Notes Languages spoken: Serbian Alcohol Screening: Question Answer Notes Did you have a drink containing alcohol in the past year? Ye s Points 1 Interpretation Negative How often did you have six or more drinks on one occas ion in the past year? Never (0 points) How many drinks did you have on a typica l day when you were drinking in the past year? 1 or 2 (0 points) How often did you have a drink containing alcohol in t he past year? Monthly or less (1 point) BMI Care Goal Follow-Up Question Answer Notes Above Normal BMI Follow-Up Lifestyle education regarding t Tobacco Use: Question Answer Notes Are you a: never smoker REASON FOR REFERRAL No Information VITAL SIGNS No information MEDICATIONS Medication SIG (Take, Route, Frequency, Duration) Notes Start Da te End Date Status Vitamin D 50 MCG (1999) 1 tablet Orally Once a day Active Brimonidine Tartrate 0.15 % 1 drop into affected eye O phthalmic Three times a day Active Multivitamin - 1 tablet Orally Once a day Active Latanoprost 0.005 % 1 drop Ophthalmic at bedtime Active Claritin 10 MG 1 tablet Orally Once a day Not-Taking Vitamin D 2000 UNIT 1 tablet Orally Once a day Not-Taking Flonase 50 MCG/ACT 1 spray in each nostril Nasally Once a day fo r 30 day(s) Feb, Not-Taking Claritin 10 MG 1 tablet Orally Once a day Active Iron 28 MG 1 tablet Orally Once a day Active Ferrous Sulfate 325 (65 Fe) MG 1 tablet Orally bid Not-Taking COMPRESSION STOCKINGS 15-20 mmHg as directed _ (R60.0) Daily for LE edema for 99 months March, Not-Taking PROCEDURES No Information RESULTS No Results REASON FOR VISIT AUTHORIZATION MEDICAL (GENERAL) HISTORY Type Description Date Medical History Increased intra-ocular press ure - follows with ophthalmology q 3 months Medical History Depression/Anxiety Medical History Allergic rhinitis Medical History Vitamin D Deficiency Medical History Hemangioma liver: RUQ u/s 04/09 Medical History Liver US 07/03/18 Negative rig ht upper quadrant sonography. No sonographic evidence of hemangioma, or other focal liver lesions. Medical History Obesity Medical History Fe deficiency anemia Medical History Echo 04/17/18 LVEFD 65%, Norm al LV systolic and diastolic function, mild LA dilation Medical History abdominal hernia Surgical History cholecystectomy 2012 Surgical History all four wisdom teeth removed 2007 Surgical History Appendectomy-Silvia 04/13/15 Surgical History Tubal ligation 05/2017 Surgical History hernia repair- used mesh, en ded up being scar tissue built up, pt has mesh at umbilicus 10/2019 Hospitalization History childbirth/surgery Goals Section No Information Health Concerns No Information MEDICAL EQUIPMENT No Information MENTAL STATUS No Information FUNCTIONAL STATUS No Information ASSESSMENTS No Information PLAN OF TREATMENT Next Appt Details Provider Name:Cresencio Dia, 11:40:00 AM, [address] [place] [address], [phone], Provider Name:Cresencio Dia, 10:15:00 AM, [address] [place] [address], [phone], Provider Name:Cresencio Dia, 01:20:00 PM, [address] [place] [address], [phone], Provider Name:Cresencio Dia, 08:20:00 AM, [address] [place] [address], [phone], Insurance Providers Payer Name Payer Address Payer Phone Insured Name Patient Relati onship to Insured Coverage Start Date Coverage End Date [facility] [address] [facility] [phone] RAHAT SEXTON self
--- OUTSIDE RECORDS SUMMARY | 2021-01-07 11:33 | CCD ---
Author Author [facility] Organization [facility] Address Unknown Phone Unavailable Care Team Providers Care Reeler Operator Name Role Phone Cresencio Dia Unavailable PROBLEMS Type Condition ICD9-CM Code [id number] Code Onset Dates Condition S tatus W/U Status Risk SNOMED Code Notes Problem Depression 311 Active confirmed 207661877 Problem Vitamin d deficiency 268.9 Active confirmed 86916034 Problem Body mass index (BMI) of 45.0-49.9 in adult Z68.42 Active confirmed 568037521 Problem Abnormal uterine bleeding (AUB) N93.9 Active confirmed 25214416077841 Problem Obesity (BMI 30-39.9) 278.00 Active confirmed 751651052 Problem Abnormal uterine bleeding N93.9 Active confirmed 11520117311904 Problem Vitamin D deficiency E55.9 Active confirmed 51971806 Problem Morbid (severe) obesity due to excess calories E66 .01 Active confirmed 64336757625585 Problem Depression, unspecified depression type F32.9 Active confirmed 86546358 Problem Iron deficiency anemia, unspecified iron deficiency an emia type D50.9 Active confirmed 28940633 ALLERGIES Allergen (clinical drug ingredient) Drug/Non Drug Allergy do cumented on EMR Reaction Allergy Type Onset Date Status Oral control Hives Non Drug Allergy Active Codeine Phosphate (For Allergies Use Only) migraines Drug Allergy Active ENCOUNTERS from 1988 to 2021-01-04 Encounter Location Date Provider Diagnosis [facility] [address] [place] [id number] Nov, Cresencio Dia Abnormal uterine ble eding N93.9 IMMUNIZATIONS Vaccine Route Administration Date Status TDAP [...] Unknown Language: Question Answer Notes Languages spoken: Armenian Alcohol Screening: Question Answer Notes Did you [...] REASON FOR REFERRAL No Information VITAL SIGNS Weight 316.8 lbs Nov, Height 67.5 in Nov, BMI 48.88 kg/m2 Nov, Blood pressure systolic 124 mm Hg Nov, Blood pressure diastolic 72 mm Hg Nov, MEDICATIONS Medication SIG (Take, Route, Frequency, Duration) Notes Start Da te End Date Status Latanoprost 0.005 % 1 drop Ophthalmic at bedtime Active Claritin 10 MG 1 tablet Orally Once a day Not-Taking Flonase 50 MCG/ACT 1 spray in each nostril Nasally Once a day fo r 30 day(s) Feb, Not-Taking COMPRESSION STOCKINGS 15-20 mmHg as directed _ (R60.0) Daily for LE edema for 99 months March, Not-Taking Claritin 10 MG 1 tablet Orally Once a day Active Vitamin D 50 MCG (2000 UT) 1 tablet Orally Once a day Active Vitamin D 2000 UNIT 1 tablet Orally Once a day Not-Taking Multivitamin - 1 tablet Orally Once a day Active Brimonidine Tartrate 0.15 % 1 drop into affected eye O phthalmic Three times a day Active Iron 28 MG 1 tablet Orally Once a day Active Ferrous Sulfate 325 (65 Fe) MG 1 tablet Orally bid Not-Taking PROCEDURES No Information RESULTS Component Value Reference Range Pathology Request For Service Reviewed date:12/31/2020 10:13:02 Interpretation:benign Performing Lab:[facility], [facility] [address] [address] , ,[place] [address] GENITOURINARY REASON FOR VISIT PRE OP SURG 01/07/21 MEDICAL (GENERAL) HISTORY Type Description Date Medical [...] No Information FUNCTIONAL STATUS No Information ASSESSMENTS Encounter Date Diagnosis Assessment Notes Treatment Notes Treatm ent Clinical Notes Nov, Abnormal uterine bleeding (ICD-10 - N93.9) Risks, benefits, alternatives, and indications of robotic-assisted total laparoscopic hysterectomy, bilateral salpingectomy, and cystoscopy were reviewed. We discussed the distinct possibility of laparotomy to complete this procedure. A minimally invasive approach may be precluded by an inability to manipulate the cervix and uterus, significant abdominopelvic adhesive disease, difficulty controlling bleeding, and/or incidental unintentional injury to surrounding organ or tissue. She was counseled regarding the possibility of needing a blood transfusion, additional procedures to treat unintentional injury, additional hospitalization/IV antibiotics for postoperative infection, or removal of one/both ovaries. She was counseled regarding the possibility of postoperative vaginal cuff dehiscence, which would require another surgery to correct. She understands that she is to adhere to vaginal rest x 8 weeks to minimize the risk of vaginal cuff dehiscence. The plan is for ovarian retention. She was counseled regarding the 5-10% lifetime chance of reoperation on the adnexa in the future (for benign or malignant indications). She was counseled regarding her lifetime risk of ovarian cancer being roughly 1/60. She was counseled that general anesthesia carries its own specific risks to include heart attack, stroke, or . Informed consent was obtained and placed in the chart. Of note, we specifically discussed how abdominal mesh may complicated efforts at laparoscopic entry and visualization, which may end up precluding a minimally invasive approach. The risk of laparotomy was highlighted today. PLAN OF TREATMENT Treatment Notes Assessment Notes Clinical Notes Abnormal uterine bleeding Risks, benefit s, alternatives, and indications of robotic-assisted total laparoscopic hysterectomy, bilateral salpingectomy, and cystoscopy were reviewed. We discussed the distinct possibility of laparotomy to complete this procedure. A minimally invasive approach may be precluded by an inability to manipulate the cervix and uterus, significant abdominopelvic adhesive disease, difficulty controlling bleeding, and/or incidental unintentional injury to surrounding organ or tissue. She was counseled regarding the possibility of needing a blood transfusion, additional procedures to treat unintentional injury, additional hospitalization/IV antibiotics for postoperative infection, or removal of one/both ovaries. She was counseled regarding the possibility of postoperative vaginal cuff dehiscence, which would require another surgery to correct. She understands that she is to adhere to vaginal rest x 8 weeks to minimize the risk of vaginal cuff dehiscence. The plan is for ovarian retention. She was counseled regarding the 5-10% lifetime chance of reoperation on the adnexa in the future (for benign or malignant indications). She was counseled regarding her lifetime risk of ovarian cancer being roughly 1/60. She was counseled that general anesthesia carries its own specific risks to include heart attack, stroke, or . Informed consent was obtained and placed in the chart.Of note, we specifically discussed how abdominal mesh may complicated efforts at laparoscopic entry and visualization, which may end up precluding a minimally invasive approach. The risk of laparotomy was highlighted today. Next Appt Details Provider Name:Cresencio Dia, 11:00:00 AM, [address] [place], [address], Provider Name:Cresencio Dia, 01:20:00 PM, [address] [place], [address], Provider Name:Cresencio Puga Dia, 08:20:00 AM, [address] [place], [address], Insurance Providers Payer Name Payer Address Payer Phone Insured Name Patient Relati onship to Insured Coverage Start Date Coverage End Date [facility] [address] [facility] [phone] RAHAT SEXTON self
--- OUTSIDE RECORDS SUMMARY | 2021-01-07 11:33 | CCD ---
Author Author [facility] Organization [facility] Address Unknown Phone Unavailable Care Team Providers Care Chemical Engineering Professor Name Role Phone Cresencio Dia Unavailable PROBLEMS Type Condition ICD9-CM Code [id number]-BD Code Onset Dates Condition S tatus SNOMED Code Notes Problem Obesity (BMI 30-39.9) 278.00 Active 037105388 Problem Depression 311 Active 215865648 Problem Vitamin d deficiency 268.9 Active 79161410 Problem Iron deficiency anemia, unspecified iron deficiency an emia type D50.9 Active 44384471 Problem Abnormal uterine bleeding (AUB) N93.9 Active 25888874010329 Problem Body mass index (BMI) of 45.0-49.9 in adult Z68.42 Active 971248440 Problem Vitamin D deficiency E55.9 Active 44319967 Problem Morbid (severe) obesity due to excess calories E66 .01 Active 98006878428454 Problem Depression, unspecified depression type F32.9 Active 14463735 ALLERGIES Allergen (clinical drug ingredient) Drug/Non Drug Allergy do cumented on EMR Reaction Allergy Type Onset Date Status Oral control Hives Non Drug Allergy Active Codeine Phosphate (For Allergies Use Only) migraines Drug Allergy Active ENCOUNTERS from 1988 to 2020-12-08 Encounter Location Date Provider Diagnosis [facility] [address] [place] [address] 11 Nov, 2020 Cresencio Dia Abnormal uterine ble eding (AUB) N93.9 ; Enlarged uterus N85.2 ; Morbid (severe) obesity due to excess calories E66.01 and Body mass index [BMI]40.0-44.9, adult Z68.41 IMMUNIZATIONS Vaccine Route Administration Date Status TDAP [...] Unknown Language: Question Answer Notes Languages spoken: Burkinan Alcohol Screening: Question Answer Notes Did you [...] FOR REFERRAL No Information VITAL SIGNS Weight 315.8 lbs Nov, Height 67.5 in Nov, BMI 48.73 kg/m2 Nov, Blood pressure systolic 122 mm Hg Nov, Blood pressure diastolic 70 mm Hg Nov, MEDICATIONS Medication SIG (Take, Route, Frequency, Duration) Notes Start Da te End Date Status Vitamin D 50 MCG (1999 UT) 1 tablet Orally Once a day [...] Information RESULTS No Results REASON FOR VISIT discuss enlarged uterus MEDICAL (GENERAL) HISTORY Type Description Date Medical [...] ent Clinical Notes Nov, Abnormal uterine bleeding (AUB) (ICD-10 - N93.9) Reviewed use of nexplanon vs surgical mgt with ovarian preservation. EMBX needed prior to surgery. Pt prefers RA-TLH/oBS over any other form of management. Reviewed r/b/a/i of RALH/oBS. Might be inhibited by her surgical history/adhesions, which would necessitate conversion to BARON. Patient made aware. Info submitted for surgical scheduling. Nov, Enlarged uterus (ICD-10 - N85.2) Nov, Morbid (severe) obesity due to excess calories ( ICD-10 - E66.01) Nov, Body mass index [BMI]40.0-44.9, adult (ICD-10 - Z68.41) PLAN OF TREATMENT Treatment Notes Assessment Notes Clinical Notes Abnormal uterine bleeding (AUB) Reviewed use of nexplanon vs surgical mgt with ovarian preservation. EMBX needed prior to surgery. Pt prefers RA-TLH/oBS over any other form of management. Reviewed r/b/a/i of RALH/oBS. Might be inhibited by her surgical history/adhesions, which would necessitate conversion to BARON. Patient made aware. Info submitted for surgical scheduling. Next Appt Details Needs appt for embx and surgical consent for hyster Reason: Provider Name:Cresencio Dia, 11:40:00 AM, [address] [place] [address], [phone], Provider Name:Cresencio Dia, 10:15:00 AM, [address] [place] [address], [phone], Provider Name:Cresencio Dia, 01:20:00 PM, [address] [place] [address], [phone], Provider Name:Cresencio Dia, 08:20:00 AM, [address] [place] [address], [phone], Insurance Providers Payer Name Payer Address Payer Phone Insured Name Patient Relati onship to Insured Coverage Start Date Coverage End Date [facility] [address] [facility] [phone] RAHAT SEXTON self
--- OUTSIDE RECORDS SUMMARY | 2021-01-07 11:33 | CCD ---
Author Author [facility] Organization [facility] Address Unknown Phone Unavailable Support Name Relationship Address Phone [facility] Next Of Kin [address] [place] [address] [facility] Next Of Kin [address] [place] [address] GINNY JANSEN(DIFF#) Next Of Kin [address] [place] [address] [facility] Next Of Kin [address] [place] [address] [facility] Next Of Kin [address] [place] [address] UNEMPLOYED Next Of Kin [address] [place] [address] [place] [address] [employer] Next Of Kin Unknown Unavailable GINNY JANSEN Next Of [facility] [address] [place] [address] [employer] Next Of Kin [address] [place] [address] Ginny Jansen [facility] [address] [place] [address] Re-disclosure Warning The records that you are about to access may contain information from federally-assisted alcohol or drug abuse programs. If such information is present, then the following federally mandated warning applies: This information has been disclosed to you from records protected by federal confidentiality rules (42 CFR part 2). The federal rules prohibit you from making any further disclosure of this information unless further disclosure is expressly permitted by the written consent of the person to whom it pertains or as otherwise permitted by 42 CFR part 2. A general authorization for the release of medical or other information is NOT sufficient for this purpose. The Federal rules restrict any use of the information to criminally investigate or prosecute any alcohol or drug abuse patient.The records that you are about to access may contain highly sensitive health information, the redisclosure of which is protected by Article 27-F of the [facility] Public Health law. If you continue you may have access to information: Regarding HIV / AIDS; Provided by facilities licensed or operated by the [facility] Office of Mental Health; or Provided by the [facility] Office for People With Developmental Disabilities. If such information is present, then the following [facility] mandated warning applies: This information has been disclosed to you from confidential records which are protected by state law. State law prohibits you from making any further disclosure of this information without the specific written consent of the person to whom it pertains, or as otherwise permitted by law. Any unauthorized further disclosure in violation of state law may result in a fine or assisted sentence or both. A general authorization for the release of medical or other information is NOT sufficient authorization for further disc losure. Family History Family Member Name Family Member Gender Family Member Status Date o f Status Description Data Source(s) Unknown Unknown Problem MEDENT ([facility], [facility]) Encounters Encounter Providers Location Date Indications Data Source(s ) Out[place] [address] [facility] [place] [address] 12/21/2020 12:00:00 AM EST eCW1 ([facility]) Unknown [address] [facility] [place] [address] 12/09/2020 12:00:00 AM EST eCW1 ([facility]) Outpatient [address] [facility] [place] [address] 12/06/2020 12:00:00 AM EST eCW1 ([facility]) Medications Medication Brand Name Start Date Product Form Dose Route Admi nistrative Instructions Pharmacy Instructions Status Indications Reaction Description Data Source(s) 0.15 % 09/25/2020 12:00:00 AM EDT drops 5 INSTILL 1 DROP IN EACH EYE THREE TIMES A DAY DIRECTED INSTILL 1 DROP IN EACH EYE THREE TIMES A DAY DIRECTED SOLD: 09/25/2020 [facility] 0.005 % 09/25/2020 12:00:00 AM EDT drops 2 INSTILL 1 DROP IN EACH EYE AT BEDTIME DIRECTED INSTILL 1 DROP IN EACH EYE AT BEDTIME DIRECTED SOLD : 09/25/2020 [facility] 0.025 % (0.035 %) 09/23/2020 12:00:00 AM EDT drops 5 INSTILL ONE DROP IN THE AFFECTED EYE(S) TWICE A DAY INSTILL ONE DROP IN THE AFFECTED EYE(S) TWICE A DAY SOLD: 09/25/2020 [facility] 5-325 mg 11/14/2019 12:00:00 AM EST tablet 20 TAKE ONE TO TWO TABLETS BY MOUTH THREE TIMES A DAY NEEDED FOR PAIN MAXIMUM DAILY DOSE = 6 TAKE ONE TO TWO TABLETS BY MOUTH THREE TIMES A DAY NEEDED FOR PAIN MAXIMUM DAILY DOSE = 6 SOLD: 11/14/2019 [facility] 0.15 % 09/02/2019 12:00:00 AM EDT drops 5 INSTILL ONE DROP IN EACH EYE THREE TIMES A DAY DIRECTED INSTILL ONE DROP IN EACH EYE THREE TIMES A DAY DIRECTED SOLD: 03/04/2020 [facility] 0.005 % 09/02/2019 12:00:00 AM EDT drops 2 INSTILL ONE DROP IN EACH EYE AT BEDTIME DIRECTED INSTILL ONE DROP IN EACH EYE AT BEDTIME DIRECTED SO LD: 03/04/2020 [facility] 0.005 % 09/02/2019 12:00:00 AM EDT drops 2 INSTILL ONE DROP IN EACH EYE AT BEDTIME DIRECTED INSTILL ONE DROP IN EACH EYE AT BEDTIME DIRECTED SO LD: 05/23/2020 [facility] 0.15 % 09/02/2019 12:00:00 AM EDT drops 5 INSTILL ONE DROP IN EACH EYE THREE TIMES A DAY DIRECTED INSTILL ONE DROP IN EACH EYE THREE TIMES A DAY DIRECTED SOLD: 05/23/2020 [facility] 0.005 % 09/02/2019 12:00:00 AM EDT drops 2 INSTILL ONE DROP IN EACH EYE AT BEDTIME DIRECTED INSTILL ONE DROP IN EACH EYE AT BEDTIME DIRECTED SO LD: 12/21/2019 [facility] 0.15 % 09/02/2019 12:00:00 AM EDT drops 5 INSTILL ONE DROP IN EACH EYE THREE TIMES A DAY DIRECTED INSTILL ONE DROP IN EACH EYE THREE TIMES A DAY DIRECTED SOLD: 12/21/2019 [facility] Insurance Providers Payer name Policy type / Coverage type Policy ID Covered republican ID Covered republican's relationship to cristina Policy Cristina Plan Information [employer] COMMUNITY PLAN MCDO [id number] SP [id number] [facility] O [id number] S [id number] [facility] Health Maintenance Organization (O) [id number] Self [id number] ANSI-Medicaid [id number] [facility] Health Maintenance Organization [place] [id number] Self [id number] ANSI-Medicaid [id number] ANSI-Medicaid [id number] ANSI-Medicaid [id number] ANSI-Medicaid [id number] [facility] I [id number] Self [id number] [facility] Health Maintenance Organization (HMO) [id number] Self [id number] UN COMMUNITY PLAN MCDO [id number] SP [id number] [facility] Health Maintenance Organization (HMO) [id number] Self [id number] BS Olegario Hmo Blue Option Commercial Self c Community Plan Medigap Part B Self BLUE CROSS KENT PLAN [id number] SP [id number] HMO BLUE [id number] SP [id number] MEDICAID [id number] SP [id number] Problems, Conditions, and Diagnoses Code Display Name Description Problem Type Effective Dates Data Source(s) N93.9 [id number] Abnormal uterine bleeding Problem 12/21/2020 12:00:00 AM EST eCW1 ([facility]) Surgeries/Procedures Procedure Description Date Indications Data Source(s) Lap Vent Umb Spig Epig W Mesh, Reducible 11/14/2019 12 :00:00 AM EST [facility] Results ID Date Data Source [id number] 01/02/2021 08:30:00 AM EST [facility] Name Value Range Interpretation Code Description Data Radha rce(s) Supporting Document(s) SARS coronavirus 2 RNA Not Detected [facility] [place] This lab was ordered by [facility] and reported by [facility]. ID Date Data Source Pathology Request For Service 12/21/2020 12:00:00 AM EST eCW 1 ([facility]) Name Value Range Interpretation Code Description Data Radha rce(s) Supporting Document(s) GENITOURINARY eCW1 ([facility]) ID Date Data Source [id number] 11/14/2019 09:34:00 AM EST MEDENT ([facility], ) Name Value Range Interpretation Code Description Data Radha rce(s) Supporting Document(s) Surgical pathology study (SEE NOTE) [facility] ([facility], ) FINAL DIAGNOSIS Umbilical hernia contents, repair: Dense fibroconnective tissue and adipose tissue , consistent with contents of hernia-clinical. 11/20/2019 - 1206 CLINICAL DIAGNOSIS Umbilical hernia 11/14/2019 - 1615 GROSS DIAGNOSIS Received in formalin labeled "umbilical hernia content" are irregular fragments of firm grubbs to yellow soft tissue measuring 3 x 2.5 x 1.0 cm in aggregate. Workforce Development Program Director sections in one. -BP 11/14/2019 - 1615 Signed Gerald England M.D. 11/20/2019 1206 Procedure Social History Code Duration Value Status Description Data Source(s ) Smoking 12/21/2020 12:00:00 AM EST Never Smoker completed Never S moker eCW1 ([facility]) Smoking 12/06/2020 12:00:00 AM EST Never Smoker completed Never S moker eCW1 ([facility]) Smoking 12/06/2020 12:00:00 AM EST Never Smoker completed Never S moker eCW1 ([facility]) Vital Signs ID Date Data Source UNK Name Value Range Interpretation Code Description Data Source(s) Diastolic blood pressure 72 mm[Hg] 72 mm[Hg] eCW1 ([facility]) Systolic blood pressure 124 mm[Hg] 124 mm[Hg] e CW1 ([facility]) Body mass index (BMI) [Ratio] 48.88 kg/m2 48.88 kg/m2 eCW1 ([facility]) Body height 67.5 [in_i] 67.5 [in_i] eCW[facility] Body weight 316.8 [lb_av] 316.8 [lb_av] eCW1 ([facility]) Diastolic blood pressure 70 mm[Hg] 70 mm[Hg] eCW1 ([facility]) Systolic blood pressure 122 mm[Hg] 122 mm[Hg] e CW1 ([facility]) Body mass index (BMI) [Ratio] 48.73 kg/m2 48.73 kg/m2 W1 ([facility]) Body height 67.5 [in_i] 67.5 [in_i] eCW1 ([facility]) Body weight 315.8 [lb_av] 315.8 [lb_av] eCW1 ([facility]) Body weight 142.147 kg 142.147 kg [facility] Body mass index (BMI) [Ratio] 47.6 kg/m2 47.6 k g/m2 MED[facility] ([facility], ) Body weight 313.38 [lb_av] 313.38 [lb_av] MEDEN T ([facility], ) Body height 68 [in_i] 68 [in_i] [facility] ([facility], ) 5'8" Diastolic blood pressure 72 mm[Hg] 72 mm[Hg] [facility] ([facility], ) Systolic blood pressure 112 mm[Hg] 112 mm[Hg] M EDENT ([facility], ) Body weight 139.709 kg 139.709 kg MED[facility] ([facility], ) Body mass index (BMI) [Ratio] 46.8 kg/m2 46.8 k g/m2 [facility], ) Body weight 308.00 [lb_av] 308.00 [lb_av] FREDRICK Sanchez ([facility], ) Body height 68 [in_i] 68 [in_i] [facility] ([facility], ) 5'8" Heart rate 69 /min 69 /min [facility] Diastolic blood pressure 71 mm[Hg] 71 mm[Hg] ALEXYS ([facility], ) Systolic blood pressure 126 mm[Hg] 126 mm[Hg] La ROMAN ([facility], )
[2021-01-07 12:06] LABS: HEMATOCRIT 36.8 % (36.0-47.0); MEAN CORPUSCULAR HEMOGLOBIN 28.8 pg (27.0-33.0); MEAN CORPUSCULAR HGB CONC 32.6 g/dl (32.0-36.5); MEAN CORPUSCULAR VOLUME 88.5 fl (80.0-96.0); PLATELET COUNT, AUTOMATED 364 10^3/uL (150-450); RED BLOOD COUNT 4.16 10^6/uL (4.00-5.40); WHITE BLOOD COUNT 8.4 10^3/uL (4.0-10.0)
[2021-01-07] MEDS ORDERED: BUPIVACAINE HCL 0.25% 30ML VIAL As Ordered ONE (12:17)
[2021-01-07] MEDS ORDERED: METHYLENE BLUE 0.5% (5MG/ML) 10 ML AMP (PROVAYBLUE) As Ordered ONE (12:17)
[2021-01-07 12:30] LABS: HCG, SERUM QUALITATIVE NEGATIVE (NEGATIVE)
--- NOTE | 2021-01-07 14:53 | ROOPDOC ---
[facility] Report Of Operation Report of Operation DATE OF PROCEDURE: 01/07/21 PREPROCEDURE DIAGNOSES: Abnormal uterine bleeding, chronic pelvic pain. POSTPROCEDURE DIAGNOSES: Same. PROCEDURE: Robotic-assisted total laparoscopic hysterectomy, cystoscopy SURGEON: Cresencio Dia D.O. FACOG FACE BOSS: Lucero Salinas ANESTHESIA: General endotracheal. ESTIMATED BLOOD LOSS: Approximately 150 mL. FLUIDS REPLACED: 1300 mL LR URINE OUTPUT: 100 mL COMPLICATIONS: None. FINDINGS: Normal-appearing ovaries bilaterally. Uterus was approximately 12 centimeters in greatest dimension. Cystoscopy: Bilateral ureteral orifice efflux, no bladder injury/suture material. PREOPERATIVE ANTIBIOTIC PROPHYLAXIS: Ancef 2 g IV 1. SPECIMEN(S): Uterus w/ cervix, DESCRIPTION OF PROCEDURE: The patient was counseled, consented on the respective benefits, indications, alternatives of procedure. Informed consent was obtained. She was taken to the operating room with an IV running. She was placed on the operating table in dorsal supine position. Gen. anesthesia was administered and the airway was secured without any difficulty. She was placed in the low lithotomy position. . She was prepared and draped in the normal sterile fashion. A time out was performed per protocol. A Hanson catheter was placed under sterile conditions. A sterile speculum was placed resulting in good visualization of the cervix. A single-tooth tenaculum was used to grasp the anterior lip cervix. The cervix was sequentially dilated with Festus dilators. A V-Care uterine manipulator was placed without any difficulty. The single-tooth tenaculum was removed, as well as the speculum. A sterile glove switch was performed. Attention was turned to the abdomen. A 2mm incision was made in the umbilicus, and through this incision a Veress needle was inserted into the intraperitoneal cavity. Intraperitoneal placement was confirmed with ease of flow of normal saline, positive drop test, no return on aspiration, and an opening pressure of less than 10 mmHg upon initial insufflation. The abdomen was insufflated with 2 L of gas. The Veress needle was removed. A supraumbilical 8 mm incision was made. Through this incision, the robotic trochar/cannula was inserted into the intraperitoneal cavity under direct visualization. No incidental bleeding nor injury was noted. Patient was placed in 30 Trendelenburg. The right and left trocars/cannulas were placed on both the right and left side through 8 mm incisions, guided by laparoscopic vis ualization. No incidental bleeding nor injury was noted. The robot was docked in typical fashion. The instruments were inserted, guided by laparoscopic visualization. My attention was turned to the robotic console. The right utero-ovarian ligament and right round ligament were sequentially clamped, coagulated and transected with the vessel sealer device. The vesicouterine peritoneum was dissected with the vessel sealer device to create the bladder flap, thus mobilizing the lower uterine segment and cervix off of the bladder. The right uterine vasculature was sequentially clamped, coagulated and transected above the colpotomy cup. The left utero-ovarian ligament and left round ligament were sequentially clamped, coagulated and transected with the vessel sealer device. The remainder of the bladder flap was dissected using the vessel sealer device and blunt dissection. The left uterine vasculature was sequentially clamped, coagulated and transected above the colpotomy cup. The outline of the entire V- care colpotomy cup was able to be delineated. Excellent blanching of the uterus was noted. A circumferential colpotomy was performed using the da Geremias monopolar miryam, following the contour of the cup. The amputated cervix and uterus were brought through the colpotomy into and out of the vagina, intact as one unit. The colpotomy was closed with the V-lock barbed suture in running fashion, thus creating the vaginal cuff. Excellent hemostasis was noted throughout the steps above. Susana was placed over the vaginal cuff to ensure hemostasis. The instruments were removed from the abdomen and the robot was un- docked. The gas was released from the abdomen and the patient was taken out of Trendelenburg. I re-scrubbed, and attention was turned to the pelvis. The Hanson catheter was removed. The cystoscope was placed transurethrally into the bladder and normal saline was instilled. No bladder injury/suture material was noted. IV methylene blue had been administered by anesthesia and bilateral UO efflux was confirmed. The fluid was drained out of the bladder through the cystoscope device, then the cystoscope was removed. The vagina was copiously irrigated. A sterile digital vaginal exam revealed no significant bleeding and an intact vaginal cuff. A sterile glove switch was performed. The da Geremias cannulas were removed. The skin incisions were closed with 4-0 Monocryl in subcuticular fashion. Sponge, needle and instrument counts were correct per protocol. The patient tolerated the entire procedure very well. She was transferred to the PACU in good and stable condition. DO TOSHIA Galaviz JONATHAN R. DO Jan 07, 2021 14:53
[2021-01-07] MEDS: PERCOCET 5MG/325MG TAB PO PRN ×2 (15:11→15:47)
[2021-01-07] MEDS ORDERED: fentaNYL 100 MCG/2 ML INJECTION (J3010) IV PRN (15:15)
[2021-01-07] MEDS ORDERED: METOCLOPRAMIDE INJ 10MG/2ML VIAL (J2765 PER 1) IV PRN (15:15)
[2021-01-07] MEDS ORDERED: LR 1,000 ML IV SCH (15:15)
[2021-01-07] MEDS ORDERED: ONDANSETRON 4MG/2ML VIAL IV PRN ×2 (15:15→16:00)
[2021-01-07] MEDS ORDERED: OXYC1TAB23 PO (15:29)
[2021-01-07] MEDS ORDERED: COLA100C5 PO (15:31)
[2021-01-07] MEDS ORDERED: IBUP80TA PO (15:31)
[2021-01-07] MEDS ORDERED: diphenhydrAMINE 50MG/ML VIAL (J1200) IV PRN (16:00)
[2021-01-07] MEDS ORDERED: KETOROLAC 30 MG/ML 1ML VIAL IV PRN (16:00)
[2021-01-07] MEDS ORDERED: MORPHINE 10 MG/ML 1ML VIAL (J2270) IV PRN (16:00)
[2021-01-07] MEDS ORDERED: PERCOCET 5MG/325MG TAB PO PRN ×2 (16:00)
[2021-01-07 16:20] VITALS: BP 143/77
[2021-01-07 18:00] VITALS: BP 132/64
[2021-01-07 19:00] VITALS: BP 115/77
[2021-01-07 20:00] VITALS: BP 120/66
[2021-01-07 21:00] VITALS: BP 113/56
[2021-01-07 22:00] VITALS: BP 127/57
[2021-01-08 02:00] VITALS: BP 122/58
[2021-01-08 06:00] VITALS: BP 118/56
[2021-01-08 08:11] VITALS: BP 129/74
== END 2021-01-08 10:55 | disposition home or self-care (01) ==
LOC: M SDC 11:29 → M PED 16:11 → M SDC 01-08 10:55
PROVIDERS: ATTEND Obstetrics & Gynecology
DX: N93.9 Abnormal uterine and vaginal bleeding, unspecified (principal); R10.2 Pelvic and perineal pain; K21.9 Gastro-esophageal reflux disease without esophagitis; D64.9 Anemia, unspecified; F41.9 Anxiety disorder, unspecified; F32.9 Major depressive disorder, single episode, unspecified; G43.909 Migraine, unspecified, not intractable, without status migrainosus; E66.9 Obesity, unspecified; Z79.899 Other long term (current) drug therapy; Z88.5 Allergy status to narcotic agent; Z88.8 Allergy status to other drugs, medicaments and biological substances
CPT/HCPCS: 36415; 58570; 84703; 85027; 86850; 86900; 86901; 88307; 96374; 96375; J0131; J0690; J1100; J1170; J1885; J2250; J2405; J3010; Q9968; S2900

== ENCOUNTER → 2021-05-13 | Outpatient (REF) | payer OTHER ==
[~2021-05-13] MED LIST changes: -ACETAMINOPHEN 1000MG 100ML IV BTL (OFIRMEV) (J0131 PER 10MG) As Ordered ONE; +COLA100C5 PO; -HYDROmorphone HCL 2 MG/ML 1ML VIAL (J1170) As Ordered ONE; +IBUP80TA PO; -KETOROLAC 60MG 2ML VIAL As Ordered ONE; -LIDOCAINE 1% MDV 20ML VIAL SQ PRN; -LIDOCAINE 2% 100MG/5ML SDV (FOR ANES.) As Ordered ONE; -LR 1,000 ML IV ONE; -MIDAZOLAM INJ 2MG/2ML VIAL (J2250 PER 1MG) As Ordered ONE; -ONDANSETRON 4MG/2ML VIAL As Ordered ONE; -ROCURONIUM BROMIDE 50 MG/5 ML VIAL As Ordered ONE; -SUGAMMADEX SODIUM 500 MG/5 ML VIAL (BRIDION) As Ordered ONE; -ceFAZolin SOD 2 GM in IV 1 EA IV ONE; -dexameTHASONE 4 MG/ML 1ML VIAL (J1100 PER 1MG) As Ordered ONE; -fentaNYL 100 MCG/2 ML INJECTION (J3010) As Ordered ONE; -propofoL 200 MG/20 ML VIAL As Ordered ONE
[2021-05-13 13:10] LABS: BASO # 0.1 10^3/uL (0.0-0.2); BASO % 0.5 % (0.0-1.0); EOS # 0.4 10^3/uL (0.0-0.5); EOS % 3.4 % (0.0-3.0); HEMATOCRIT 37.9 % (36.0-47.0); HEMOGLOBIN 11.9 g/dl (12.0-15.5); LYMPH # 3.2 10^3/uL (1.5-5.0); LYMPH % 30.2 % (24.0-44.0); MEAN CORPUSCULAR HEMOGLOBIN 27.8 pg (27.0-33.0); MEAN CORPUSCULAR HGB CONC 31.4 g/dl (32.0-36.5); MEAN CORPUSCULAR VOLUME 88.6 fl (80.0-96.0); MONO # 0.6 10^3/uL (0.0-0.8); MONO % 5.3 % (2.0-8.0); NEUTROPHILS # 6.2 10^3/uL (1.5-8.5); NEUTROPHILS % 59.1 % (36.0-66.0); PLATELET COUNT, AUTOMATED 368 10^3/uL (150-450); RED BLOOD COUNT 4.28 10^6/uL (4.00-5.40); WHITE BLOOD COUNT 10.5 10^3/uL (4.0-10.0)
[2021-05-13 14:17] LABS: ALBUMIN 3.5 GM/DL (3.2-5.2); ALT/SGPT 19 U/L (12-78); BILIRUBIN,TOTAL 0.2 MG/DL (0.2-1.0); BLOOD UREA NITROGEN 14 MG/DL (7-18); CARBON DIOXIDE LEVEL 28 MEQ/L (21-32); CHLORIDE LEVEL 104 MEQ/L (98-107); CHOLESTEROL LEVEL 139 MG/DL (<200); CHOLESTEROL RISK RATIO 3.309 (<5); CREATININE FOR GFR 0.71 MG/DL (0.55-1.30); FREE T4 0.94 NG/DL (0.76-1.46); GLOMERULAR FILTRATION RATE > 60.0 (>60); GLUCOSE, FASTING 86 MG/DL (70-100); HDL CHOLESTEROL 42 MG/DL (>40); LDL CHOLESTEROL 85 MG/DL (<100); NON-HDL-C 97 MG/DL; POTASSIUM SERUM 4.4 MEQ/L (3.5-5.1); SODIUM LEVEL 137 MEQ/L (136-145); TOTAL PROTEIN 7.3 GM/DL (6.4-8.2); TRIGLYCERIDES LEVEL 62 MG/DL (<150)
[2021-05-13 15:12] LABS: HEMOGLOBIN A1c 5.3 %
== END ==
LOC: M SFHCPLAZ 10:57
PROVIDERS: ATTEND Nurse Practitioner Family
DX: E78.5 Hyperlipidemia, unspecified (principal); F32.9 Major depressive disorder, single episode, unspecified; Z13.228 Encounter for screening for other metabolic disorders; Z13.1 Encounter for screening for diabetes mellitus

== ENCOUNTER → 2021-05-27 | Outpatient (CLI) | payer OTHER ==
--- NOTE | 2021-05-27 13:38 | REP ---
INDICATION: PAIN COMPARISON: None. TECHNIQUE: AP, lateral, bilateral oblique views right foot. FINDINGS: The osseous structures and joint spaces are intact and normal. There is no evidence for acute fracture or dislocation. Surrounding soft tissues are unremarkable. No subcutaneous emphysema or radiodense foreign body. IMPRESSION: Normal age-appropriate right foot radiographs. <Electronically signed by Dawit Roque > 05/27/21 [id number]
== END ==
LOC: M WUC 13:14
PROVIDERS: ATTEND Physician Assistant
DX: M79.671 Pain in right foot (principal)

== ENCOUNTER → 2021-06-17 | Outpatient (CLI) | payer OTHER ==
--- NOTE | 2021-06-27 18:21 | SLEEPHOME ---
DATE: 06/17/2021 ORDERED BY: CHAR BAH Diagnostic home sleep testing was performed due to concern for the obstructive sleep apnea syndrome. For testing, a nocturnal T3 respiratory monitoring device was used. Continuous record was made of pulse, oxygen saturation, air flow, chest and abdominal strain, and body position. Eight hours and 14 minutes of data were reviewed. During this interval there were 124 respiratory events identified of 10 seconds in duration or greater for a respiratory event index of 16.5. The events were primarily obstructive. Baseline pulse rate was 81. Pulse rate ranged 57 to 124. Baseline saturation was 93%. Saturations fell as low as 77% and testing was performed in both the supine and nonsupine positions. IMPRESSION: Abnormal home sleep testing with repetitive respiratory events and oxygen desaturations to 77% with a respiratory event index of 16.5 is consistent with the obstructive sleep apnea syndrome. RECOMMENDATION: The patient should be encouraged to undergo a formal sleep evaluation.
== END ==
LOC: M SLEEP HO 10:32
PROVIDERS: ATTEND Nurse Practitioner Family
DX: R40.0 Somnolence (principal)

== ENCOUNTER → 2021-12-01 | Outpatient (CLI) | payer OTHER | LOC: M LABSMTC 12:18 | PROVIDERS: ATTEND Pediatrics | DX: Z11.52 Encounter for screening for COVID-19 (principal) ==

== ENCOUNTER → 2022-01-23 | Outpatient (CLI) | payer OTHER | LOC: M PLAIMG 10:54 | PROVIDERS: ATTEND Nurse Practitioner Family | DX: M54.50 Low back pain, unspecified (principal) ==

== ENCOUNTER → 2022-01-25 | Outpatient (CLI) | payer OTHER ==
[2022-01-25 19:18] LABS: ALBUMIN 3.3 GM/DL (3.2-5.2); ALT/SGPT 21 U/L (12-78); AMYLASE 43 U/L (25-115); BILIRUBIN,TOTAL 0.4 MG/DL (0.2-1.0); BLOOD UREA NITROGEN 13 MG/DL (7-18); CALCIUM LEVEL 8.9 MG/DL (8.5-10.1); CARBON DIOXIDE LEVEL 31 MEQ/L (21-32); CHLORIDE LEVEL 106 MEQ/L (98-107); CREATININE FOR GFR 0.74 MG/DL (0.55-1.30); GLOMERULAR FILTRATION RATE > 60.0 (>60); GLUCOSE, FASTING 72 MG/DL (70-100); LIPASE 89 U/L (73-393); POTASSIUM SERUM 4.7 MEQ/L (3.5-5.1); SODIUM LEVEL 140 MEQ/L (136-145); TOTAL PROTEIN 7.2 GM/DL (6.4-8.2)
[2022-01-25 19:37] LABS: BASO # 0.1 10^3/uL (0.0-0.2); BASO % 0.7 % (0.0-1.0); EOS # 0.4 10^3/uL (0.0-0.5); EOS % 4.7 % (0.0-3.0); HEMATOCRIT 36.8 % (36.0-47.0); HEMOGLOBIN 11.7 g/dl (12.0-15.5); LYMPH % 32.9 % (24.0-44.0); MEAN CORPUSCULAR HEMOGLOBIN 28.5 pg (27.0-33.0); MEAN CORPUSCULAR HGB CONC 31.8 g/dl (32.0-36.5); MEAN CORPUSCULAR VOLUME 89.5 fl (80.0-96.0); MONO # 0.6 10^3/uL (0.0-0.8); MONO % 6.8 % (2.0-8.0); NEUTROPHILS # 4.9 10^3/uL (1.5-8.5); PLATELET COUNT, AUTOMATED 361 10^3/uL (150-450); RED BLOOD COUNT 4.11 10^6/uL (4.00-5.40); WHITE BLOOD COUNT 9.1 10^3/uL (4.0-10.0)
== END ==
LOC: M PLALAB 15:12
PROVIDERS: ATTEND Specialist
DX: R10.2 Pelvic and perineal pain (principal)

== ENCOUNTER → 2022-01-26 | Outpatient (CLI) | payer OTHER | LOC: M WHC 12:26 | PROVIDERS: ATTEND Specialist | DX: R10.2 Pelvic and perineal pain (principal) ==

== ENCOUNTER → 2022-02-24 | Outpatient (CLI) | payer OTHER ==
[~2022-02-24] MED LIST changes: +GASTROGRAFIN SOLUTION 30ML (Q9963) As Ordered ONE; +ISOVUE-370 76% 100ML VIAL As Ordered ONE
== END ==
LOC: M RAD 08:33
PROVIDERS: ATTEND Specialist
DX: R10.2 Pelvic and perineal pain (principal)
CPT/HCPCS: 74178; Q9963; Q9967

== ENCOUNTER 2023-04-24 08:23 | Emergency (ER) | payer OTHER ==
[~2023-04-24] VITALS: Ht 172.7 cm; Wt 145.6 kg
[~2023-04-24 08:23] MED LIST changes: -GASTROGRAFIN SOLUTION 30ML (Q9963) As Ordered ONE; -ISOVUE-370 76% 100ML VIAL As Ordered ONE; -KETO0.02 OU; +KETO5DRO33 OU
[2023-04-24] MEDS ORDERED: NS 1,000 ML IV ONE (09:10)
[2023-04-24 09:45] LABS: BASO # 0.1 10^3/uL (0.0-0.2); BASO % 0.3 % (0.0-1.0); HEMATOCRIT 36.3 % (36.0-47.0); HEMOGLOBIN 11.9 g/dl (12.0-15.5); LYMPH # 1.9 10^3/uL (1.5-5.0); LYMPH % 8.5 % (24.0-44.0); MEAN CORPUSCULAR HEMOGLOBIN 29.5 pg (27.0-33.0); MEAN CORPUSCULAR HGB CONC 32.8 g/dl (32.0-36.5); MEAN CORPUSCULAR VOLUME 89.9 fl (80.0-96.0); MONO # 1.5 10^3/uL (0.0-0.8); MONO % 6.6 % (2.0-8.0); NEUTROPHILS # 18.9 10^3/uL (1.5-8.5); NEUTROPHILS % 83.2 % (36.0-66.0); PLATELET COUNT, AUTOMATED 308 10^3/uL (150-450); RED BLOOD COUNT 4.04 10^6/uL (4.00-5.40); WHITE BLOOD COUNT 22.7 10^3/uL (4.0-10.0)
[2023-04-24] MEDS ORDERED: ISOVUE-370 76% 100ML VIAL As Ordered ONE (09:46)
[2023-04-24] MEDS ORDERED: cefTRIAXone SOD 2 GM in D5W MINI-BAG PLUS 50 ML IV ONE (09:55)
[2023-04-24 10:07] LABS: ALBUMIN 3.2 G/DL (3.2-5.2); ALKALINE PHOSPHATASE 81 U/L (46-116); ALT/SGPT 14 U/L (7.0-40); AST/SGOT 15 U/L (<34); BILIRUBIN,DIRECT 0.2 MG/DL (<0.4); BILIRUBIN,TOTAL 0.5 MG/DL (0.3-1.2); BLOOD UREA NITROGEN 12 MG/DL (9-23); CARBON DIOXIDE LEVEL 26 MMOL/L (20-31); CHLORIDE LEVEL 103 MMOL/L (98-107); GLOMERULAR FILTRATION RATE > 60.0 (>60); GLUCOSE, FASTING 103 MG/DL (60-100); POTASSIUM SERUM 3.8 MMOL/L (3.5-5.1); SODIUM LEVEL 137 MMOL/L (136-145); TOTAL PROTEIN 6.7 G/DL (5.7-8.2)
[2023-04-24] MEDS ORDERED: PENI500T PO (11:06)
[2023-04-24] MEDS ORDERED: IBUP-1022 PO (11:07)
[2023-04-24 11:28] VITALS: BP 133/69
== END 2023-04-24 11:31 | disposition home or self-care (01) ==
LOC: M ED 08:23
DX: J02.0 Streptococcal pharyngitis (principal); F41.9 Anxiety disorder, unspecified; F32.A Depression, unspecified; Z88.8 Allergy status to other drugs, medicaments and biological substances; Z88.5 Allergy status to narcotic agent; Z79.899 Other long term (current) drug therapy
CPT/HCPCS: 70491; 80047; 80048; 80076; 85025; 87040; 87880; 96365; 96375; 99283; J0696; J1100; Q9967

== ENCOUNTER 2025-09-29 08:16 | Emergency (ER) | payer OTHER ==
[~2025-09-29] VITALS: Ht 172.7 cm; Wt 149.0 kg
[~2025-09-29 08:16] MED LIST changes: -IBUP-1022 PO; +IBUP600T42 PO; +PENI500T PO; +[UNRECOGNIZED DRUG - CODE]; -[UNRECOGNIZED DRUG - OTHER]
[2025-09-29 08:18] VITALS: TEMP 97.6
[2025-09-29 09:30] LABS: BASO # 0.1 10^3/uL (0.0-0.2); BASO % 1.0 % (0.0-1.0); EOS # 0.4 10^3/uL (0.0-0.5); EOS % 5.7 % (0.0-3.0); LYMPH # 1.6 10^3/uL (1.5-5.0); LYMPH % 21.3 % (24.0-44.0); MONO # 0.6 10^3/uL (0.0-0.8); MONO % 8.6 % (2.0-8.0); NEUTROPHILS # 4.5 10^3/uL (1.5-8.5); NEUTROPHILS % 61.0 % (36.0-66.0); PLATELET COUNT, AUTOMATED 390 10^3/uL (150-450)
[2025-09-29 09:48] LABS: ALT/SGPT 17 U/L (7.0-40); AST/SGOT 19 U/L (<34)
[2025-09-29 09:50] LABS: HCG, SERUM QUALITATIVE NEGATIVE (NEGATIVE)
[2025-09-29] MEDS ORDERED: ALPH0.156 OU (10:16)
[2025-09-29] MEDS ORDERED: LATA1DRO OU (10:16)
[2025-09-29] MEDS ORDERED: HOME MED LIST COMPLETE! XX SCH (10:20)
[2025-09-29] MEDS ORDERED: ISOVUE-370 76% 100 ML VIAL As Ordered ONE (10:31)
[2025-09-29] MEDS ORDERED: COLA100C5 PO (11:37)
[2025-09-29 11:45] VITALS: BP 132/60; O2SAT 98
[2025-09-29] MEDS: MAGNESIUM CITRATE 300 ML BTL PO ONE (11:46)
== END 2025-09-29 12:00 | disposition home or self-care (01) ==
LOC: M ED 08:16
DX: R10.9 Unspecified abdominal pain (principal); R91.8 Other nonspecific abnormal finding of lung field; Z88.5 Allergy status to narcotic agent; Z88.8 Allergy status to other drugs, medicaments and biological substances; Z79.899 Other long term (current) drug therapy
CPT/HCPCS: 36415; 74177; 80047; 80076; 83690; 84703; 85025; 99284; Q9967

== ENCOUNTER 2025-10-03 08:11 | Emergency (ER) | payer OTHER ==
[~2025-10-03] VITALS: Ht 172.7 cm; Wt 148.8 kg
[~2025-10-03 08:11] MED LIST changes: +ALPH0.156 OU; +LATA1DRO OU
[2025-10-03 12:12] LABS: BASO # 0.1 10^3/uL (0.0-0.2); BASO % 0.7 % (0.0-1.0); EOS # 0.3 10^3/uL (0.0-0.5); EOS % 4.3 % (0.0-3.0); LYMPH # 1.4 10^3/uL (1.5-5.0); LYMPH % 20.6 % (24.0-44.0); MONO # 0.6 10^3/uL (0.0-0.8); MONO % 8.1 % (2.0-8.0); NEUTROPHILS # 4.5 10^3/uL (1.5-8.5); NEUTROPHILS % 65.0 % (36.0-66.0); PLATELET COUNT, AUTOMATED 346 10^3/uL (150-450)
[2025-10-03] MEDS: ACETAMINOPHEN 500 MG TAB PO ONE (12:24)
[2025-10-03] MEDS: KETOROLAC 30 MG/ML 1 ML VIAL IV ONE (12:25)
[2025-10-03 12:36] LABS: KETONE, URINE AUTO RFX NEGATIVE (NEGATIVE); LEUKOCYTE ESTERASE UR AUTO RFX NEGATIVE (NEGATIVE); MUCUS, URINE RFX SMALL (NEGATIVE); NITRITE, URINE AUTO RFX NEGATIVE (NEGATIVE); RBC, URINE AUTO RFX 0 /HPF (0-3); SQUAM EPITHELIAL CELL UR AURFX 1 /HPF (0-6); WBC, URINE AUTO RFX 0 /HPF (0-3)
[2025-10-03 12:40] LABS: ALT/SGPT 17 U/L (7.0-40); AST/SGOT 24 U/L (<34); C REACTIVE PROTEIN QUANTITATIV 2.20 MG/DL (<1.0); CALCIUM LEVEL 8.2 MG/DL (8.5-10.1); CARBON DIOXIDE LEVEL 25 MMOL/L (20-31); CHLORIDE LEVEL 103 MMOL/L (98-107); CREATININE FOR GFR 0.62 MG/DL (0.55-1.30); GLOMERULAR FILTRATION RATE > 90.0 (>60); POTASSIUM SERUM 4.5 MMOL/L (3.5-5.1); SODIUM LEVEL 138 MMOL/L (136-145)
[2025-10-03] MEDS ORDERED: METH-1165 PO (13:27)
[2025-10-03] MEDS ORDERED: MEDR4PAK PO (13:27)
[2025-10-03 13:30] VITALS: BP 137/75; TEMP 97.5; O2SAT 96
== END 2025-10-03 13:39 | disposition home or self-care (01) ==
LOC: M ED 08:11
DX: M51.360 Other intervertebral disc degeneration, lumbar region with discogenic back pain only (principal); K59.00 Constipation, unspecified; F41.9 Anxiety disorder, unspecified; F32.A Depression, unspecified; Z88.5 Allergy status to narcotic agent; Z88.8 Allergy status to other drugs, medicaments and biological substances; Z79.899 Other long term (current) drug therapy
CPT/HCPCS: 72131; 74021; 80048; 80076; 81001; 83690; 85025; 85652; 86140; 96374; 99284; J1885